=== PATIENT | male | born 1955 | race Caucasian/White ===

== ENCOUNTER 2024-06-30 20:01 | Observation (INO) ==
--- NOTE | 2024-06-30 20:16 | Emergency Department Note ---
Impression & Plan TIA (transient ischemic attack), Stroke-like symptom ED Provider Note NAME: ROCKY YUNG AGE: 68 SEX: M : 1955 ARRIVES VIA: Ambulance INFORMANT: Patient, ED PROVIDER(S): Davdi Antony DO CHIEF COMPLAINT: Strokelike symptoms HPI: The patient is a 68-year-old male who presented to the emergency department for an evaluation of strokelike symptoms. The patient arrived via ambulance. He is somewhat confused as to what happened. He states he was sitting at dinner with his significant other when he had an episode where he could not speak. He is unsure if he passed out. The patient does complain of a slight headache. He denies having any weakness in the arms or legs. He denies having any recent trauma. The patient states that he does notice that he has some problems moving the left side of his face. ROS: See above HPI for pertinent positives & negatives. A total of 10 systems reviewed and were otherwise negative. PAST MEDICAL HISTORY: See Below PAST SURGICAL HISTORY: See Below FAMILY HISTORY: See Below SOCIAL HISTORY: See Below HOME MEDICATIONS: See Below ALLERGIES: See Below VITALS: See Below PHYSICAL EXAMINATION: GENERAL: Patient is awake alert in no acute distress patient is resting comfortably and showing no signs of anxiety EYES: The conjunctivae are clear. The pupils are round and reactive. EARS, NOSE, MOUTH AND THROAT: The nose is without any evidence of any deformity. NECK: The neck is nontender and supple. RESPIRATORY: Normal respiratory effort is noted there is no evidence of wheezing rhonchi or rales CARDIOVASCULAR: Regular rate and rhythm noted there no murmurs rubs or gallops normal S1 normal S2. GASTROINTESTINAL: The abdomen is soft. Abdomen is nontender. MUSCULOSKELETAL/EXTREMITIES: There is no evidence of gross deformity full range of motion is noted in the hips and shoulders. SKIN: There is no obvious evidence of any rash. There are no petechiae, pallor or cyanosis noted. NEUROLOGIC: Patient is awake alert and oriented x3. There was a slight left- sided facial droop with sparing of the forehead. There is no drift in the upper extremities. Rod Puller strength was symmetric. The patient is able to hold each leg off the bed for greater than 5 seconds. MEDICAL DECISION MAKING: The patient is a 68-year-old male who presented to the emergency department for an evaluation of strokelike symptoms. The patient had an acute onset prior to arrival while eating dinner with his significant other. The patient's symptoms included difficulty with word finding as well as slurred speech. The patient was found to have a left-sided facial droop upon arrival to the emergency department. The patient was made a stroke alert in the emergency department. The patient's symptoms continue to improve while he was in the emergency department. I discussed his condition with the telestroke neurologist. The patient's radiographic studies did not reveal any intracranial hemorrhage or large vessel occlusion. The patient was reevaluated multiple times. I discussed the patient's condition with the on-call [facility] hospitalist. They have agreed to evaluate the patient in the emergency department for further management and disposition. The patient may require further workup to evaluate the cause of the symptoms. He was not felt to be a candidate for TNK as his symptoms are rapidly improving. The patient's blood pressure initially was very elevated. This did not require any intervention and seemed to improve just while he was in our department. Triage Nursing notes reviewed. Prior medical records reviewed Vital Signs: reviewed and remarkable for elevated blood pressure. Differential diagnosis: Infection, dehydration, metabolic abnormality, hypo/hyperglycemia, electrolyte disturbance, anemia, hypoxia, cardiac sources, intracerebral event, toxicologic, neurologic, as well as other pathologies. ER treatment provided: See below Diagnostics interpreted by me: ECG: EKG was obtained in the emergency department. My interpretation is normal sinus rhythm at 77 bpm. There is no ectopy. There was no acute ST segment abnormalities noted. LVH was suggested by voltage criteria. Cardiac Monitoring: An order was placed for continuous cardiac monitoring. The monitor shows a rate of 66 bpm with sinus rhythm. Laboratory studies: As stated above and show below. Imaging studies: See below. Radiographic imaging was reviewed by myself Consultation(s): I discussed this case with the telestroke neurologist, Dr. Pablo who is on-call for [facility] I discussed this case with Dr. Lindsay [facility]. Past Med/Surg History Problem List (Updated 06/30/24 @ 21:53 by David Antony DO) Stroke-like symptom (Acute) TIA (transient ischemic attack) (Acute) Hypokalemia Dyslipidemia (Chronic) Anxiety (Chronic) TIA (transient ischemic attack) (Acute) Type 2 diabetes mellitus (Chronic) Hypertension (Chronic) Family History Other FH: breast cancer FH: kidney cancer Hypertension Social History Smoking Status: Never smoker Hx Alcohol Use: No Hx Substance Use: No Preferred Language: French Communication Ability: Effective Loom Operator Required: No Beliefs That Will Affect Care: None marital status: Single Current Living Situation: Spouse Feels Safe at Home: Yes Assistive Devices: None Allergies Allergies Allergy/AdvReac Type Severity Reaction Status Date / Time ragweed pollen Allergy Watery Eye Unverified 09/17/18 15:38 Home Meds Home Medications Medication Instructions Recorded Confirmed alprazolam 1 mg tablet (Xanax) 1 mg PO TID PRN Anxiety 09/17/18 06/30/24 atorvastatin 40 mg tablet 40 mg PO QAM 09/17/18 06/30/24 escitalopram oxalate 10 mg tablet 10 mg PO QAM 09/17/18 06/30/24 metformin 1,000 mg tablet 1,000 mg PO BID 09/17/18 06/30/24 valsartan 160 1 tab PO BID 09/17/18 06/30/24 mg-hydrochlorothiazide 12.5 mg tablet magnesium oxide 400 mg PO DAILY 06/30/24 06/30/24 Previous Rx's Medication Instructions Recorded clopidogrel 75 mg tablet (Plavix) 75 mg PO DAILY #30 tabs 09/18/18 Results & Data (ED) Vital Signs Vital Signs - 24 hr 06/30/24 20:05 06/30/24 20:05 06/30/24 20:06 Temperature 36.7 C 36.7 C Temperature Source Oral Oral Pulse Rate 74 Pulse Rate [Apical] 79 Pulse Rate from SpO2 Sensor Respiratory Rate 16 16 Respiratory Effort / Characteristics Non-Labored Non-Labored Respiratory Depth Normal Normal Blood Pressure 195/112 H Blood Pressure [Left Arm] 195/112 H Blood Pressure Mean 139 Blood Pressure Mean [Left Arm] 139 Pulse Oximetry 97 96 96 Oxygen Delivery Method Room Air Room Air Room Air Sepsis Recent Fever Within 48 Hours No Sepsis New/Unexplained Change in Mental Status No Sepsis Action Taken by Nursing No Action Required 06/30/24 20:14 06/30/24 20:24 06/30/24 20:26 Temperature Temperature Source Pulse Rate 76 82 Pulse Rate [Apical] Pulse Rate from SpO2 Sensor 82 Respiratory Rate 23 Respiratory Effort / Characteristics Respiratory Depth Blood Pressure 195/102 H Blood Pressure [Left Arm] Blood Pressure Mean 134 Blood Pressure Mean [Left Arm] Pulse Oximetry 93 Oxygen Delivery Method Sepsis Recent Fever Within 48 Hours Sepsis New/Unexplained Change in Mental Status Sepsis Action Taken by Nursing 06/30/24 20:30 06/30/24 20:33 06/30/24 20:41 Temperature Temperature Source Pulse Rate Pulse Rate [Apical] 75 Pulse Rate from SpO2 Sensor Respiratory Rate 18 Respiratory Effort / Characteristics Non-Labored Spontaneous Respiratory Depth Normal Blood Pressure 172/104 H 169/99 H Blood Pressure [Left Arm] 169/99 H Blood Pressure Mean 122 115 Blood Pressure Mean [Left Arm] 122 Pulse Oximetry 95 Oxygen Delivery Method Room Air Sepsis Recent Fever Within 48 Hours Sepsis New/Unexplained Change in Mental Status Sepsis Action Taken by Nursing 06/30/24 20:42 06/30/24 20:45 06/30/24 20:45 Temperature Temperature Source Pulse Rate 73 Pulse Rate [Apical] Pulse Rate from SpO2 Sensor 73 Respiratory Rate 17 Respiratory Effort / Characteristics Respiratory Depth Blood Pressure 171/101 H 171/101 H Blood Pressure [Left Arm] Blood Pressure Mean 124 124 Blood Pressure Mean [Left Arm] Pulse Oximetry 96 Oxygen Delivery Method Sepsis Recent Fever Within 48 Hours Sepsis New/Unexplained Change in Mental Status Sepsis Action Taken by Nursing 06/30/24 20:54 06/30/24 21:00 06/30/24 21:00 Temperature Temperature Source Pulse Rate 78 Pulse Rate [Apical] Pulse Rate from SpO2 Sensor 77 Respiratory Rate 19 Respiratory Effort / Characteristics Respiratory Depth Blood Pressure 177/105 H 177/105 H Blood Pressure [Left Arm] Blood Pressure Mean 130 130 Blood Pressure Mean [Left Arm] Pulse Oximetry 95 Oxygen Delivery Method Sepsis Recent Fever Within 48 Hours Sepsis New/Unexplained Change in Mental Status Sepsis Action Taken by Nursing 06/30/24 21:15 06/30/24 21:18 06/30/24 21:30 Temperature Temperature Source Pulse Rate 67 66 Pulse Rate [Apical] Pulse Rate from SpO2 Sensor 67 67 Respiratory Rate 16 20 Respiratory Effort / Characteristics Respiratory Depth Blood Pressure 161/96 H Blood Pressure [Left Arm] Blood Pressure Mean 110 Blood Pressure Mean [Left Arm] Pulse Oximetry 94 96 Oxygen Delivery Method Sepsis Recent Fever Within 48 Hours Sepsis New/Unexplained Change in Mental Status Sepsis Action Taken by Nursing 06/30/24 21:30 Temperature Temperature Source Pulse Rate Pulse Rate [Apical] Pulse Rate from SpO2 Sensor Respiratory Rate Respiratory Effort / Characteristics Respiratory Depth Blood Pressure 162/87 H Blood Pressure [Left Arm] Blood Pressure Mean 97 Blood Pressure Mean [Left Arm] Pulse Oximetry Oxygen Delivery Method Sepsis Recent Fever Within 48 Hours Sepsis New/Unexplained Change in Mental Status Sepsis Action Taken by Alf Medications Current Medication List: was personally reviewed by me Laboratory Data Attestation: I reviewed the patient's lab results. 06/30/24 20:07 06/30/24 20:07 Lab Results 06/30/24 06/30/24 06/30/24 Range/Units 20:06 20:07 20:11 WBC 5.52 (4.8-10.8) K/ul RBC 5.05 (4.70-6.10) M/uL Hgb 14.5 (14.0-18.0) g/dl POC Hgb 14.6 (14.0-18.0) g/dl Hct 44.0 (42.0-52.0) % POC Hct 43 (42-52) % MCV 87.1 (80.0-100.0) fL MCH 28.7 (25.0-34.0) pg MCHC 33.0 (32.0-36.0) g/dL RDW Std Deviation 45.3 (36.4-46.3) fL RDW Coeff of Sylwia 14.3 (11.5-14.5) % Plt Count 130 (130-400) K/uL MPV 12.1 (9.4-12.4) fL Immature Gran % (Auto) 0.4 % Neut % (Auto) 67.9 % Lymph % (Auto) 17.9 % [place] % (Auto) 9.1 % Eos % (Auto) 4.0 % Baso % (Auto) 0.7 % Neut # (Auto) 3.75 (1.40-6.50) K/uL Lymph # (Auto) 0.99 L (1.20-3.40) K/uL [place] # (Auto) 0.50 (0.11-0.59) K/uL Eos # (Auto) 0.22 (0.00-0.50) K/uL Baso # (Auto) 0.04 (0.00-0.20) K/uL Immature Gran # (Auto) 0.02 (0.01-0.20) K/uL PT 11.4 (9.0-12.0) Seconds INR 1.1 (0.9-1.1) APTT 29 (21-31) Seconds PTT Ratio 1.1 POC Sodium 139 (135-144) mmol/L Sodium 138 (136-145) mmol/L POC Potassium 3.5 (3.3-5.0) mmol/L Potassium 3.5 (3.5-5.1) mmol/L POC Chloride 98 L (101-112) mmol/L Chloride 100 (98-107) mmol/L Carbon Dioxide 29 (21-32) mmol/L POC Total CO2 28 (24-31) mmol/L Anion Gap 9 (3-11) POC Anion Gap 17.0 (16-25) mmol/L POC BUN 13 (7-18) mg/dl BUN 14 (6-23) mg/dl Creatinine 0.97 (0.6-1.4) mg/dl POC Creatinine 1.1 (0.6-1.3) mg/dl Est Cr Clr Drug Dosing 97.9 ml/min Est GFR ( Amer) 91.9 ml/min Est GFR (Non-Af Amer) 79.3 ml/min BUN/Creatinine Ratio 14.4 (10-20) Glucose 128 H (70-99(Fasting)) mg/dl POC Glucose 124 H (70-99) mg/dl POC Glucose (other) 126 H (70-99) mg/dl Calcium 9.1 (8.6-10.3) mg/dl POC Ioniz Calcium Kassandra 1.14 (1.12-1.32) mmol/l Magnesium 1.8 (1.7-2.4) mg/dl Total Bilirubin 2.1 H (0.2-1.0) mg/dl AST 19 (13-39) U/L ALT 20 (7-52) U/L Alkaline Phosphatase 71 (34-104) U/L Troponin I High Sens 10.1 (0-20) pg/ml Total Protein 7.4 (6.0-8.3) gm/dl Albumin 4.5 (3.4-5.0) gm/dl Globulin 2.9 (2.5-4.0) gm/dl Albumin/Globulin Ratio 1.6 (0.9-2) Urine Color Urine Appearance (Clear) Urine pH (4.5-7.5) Ur Specific [place] (1.000-1.030) Urine Protein (Negative) Urine Glucose (UA) (Negative) Urine Ketones (Negative) Urine Blood (Negative) Urine Nitrite (Negative) Urine Bilirubin (Negative) Urine Urobilinogen (Negative) Ur Leukocyte Esterase (Negative) 06/30/24 06/30/24 Range/Units 20:31 21:05 WBC (4.8-10.8) K/ul RBC (4.70-6.10) M/uL Hgb (14.0-18.0) g/dl POC Hgb (14.0-18.0) g/dl Hct (42.0-52.0) % POC Hct (42-52) % MCV (80.0-100.0) fL MCH (25.0-34.0) pg MCHC (32.0-36.0) g/dL RDW Std Deviation (36.4-46.3) fL RDW Coeff of Sylwia (11.5-14.5) % Plt Count (130-400) K/uL MPV (9.4-12.4) fL Immature Gran % (Auto) % Neut % (Auto) % Lymph % (Auto) % [place] % (Auto) % Eos % (Auto) % Baso % (Auto) % Neut # (Auto) (1.40-6.50) K/uL Lymph # (Auto) (1.20-3.40) K/uL [place] # (Auto) (0.11-0.59) K/uL Eos # (Auto) (0.00-0.50) K/uL Baso # (Auto) (0.00-0.20) K/uL Immature Gran # (Auto) (0.01-0.20) K/uL PT (9.0-12.0) Seconds INR (0.9-1.1) APTT (21-31) Seconds PTT Ratio POC Sodium (135-144) mmol/L Sodium (136-145) mmol/L POC Potassium (3.3-5.0) mmol/L Potassium (3.5-5.1) mmol/L POC Chloride (101-112) mmol/L Chloride (98-107) mmol/L Carbon Dioxide (21-32) mmol/L POC Total CO2 (24-31) mmol/L Anion Gap (3-11) POC Anion Gap (16-25) mmol/L POC BUN (7-18) mg/dl BUN (6-23) mg/dl Creatinine (0.6-1.4) mg/dl POC Creatinine (0.6-1.3) mg/dl Est Cr Clr Drug Dosing ml/min Est GFR ( Amer) ml/min Est GFR (Non-Af Amer) ml/min BUN/Creatinine Ratio (10-20) Glucose (70-99(Fasting)) mg/dl POC Glucose 126 H (70-99) mg/dl POC Glucose (other) (70-99) mg/dl Calcium (8.6-10.3) mg/dl POC Ioniz Calcium Kassandra (1.12-1.32) mmol/l Magnesium (1.7-2.4) mg/dl Total Bilirubin (0.2-1.0) mg/dl AST (13-39) U/L ALT (7-52) U/L Alkaline Phosphatase (34-104) U/L Troponin I High Sens (0-20) pg/ml Total Protein (6.0-8.3) gm/dl Albumin (3.4-5.0) gm/dl Globulin (2.5-4.0) gm/dl Albumin/Globulin Ratio (0.9-2) Urine Color Yellow Urine Appearance Clear (Clear) Urine pH 7.0 (4.5-7.5) Ur Specific [place] 1.018 (1.000-1.030) Urine Protein Negative (Negative) Urine Glucose (UA) Negative (Negative) Urine Ketones Negative (Negative) Urine Blood Negative (Negative) Urine Nitrite Negative (Negative) Urine Bilirubin Negative (Negative) Urine Urobilinogen Negative (Negative) Ur Leukocyte Esterase Negative (Negative) Administered Medications Discontinued Medications Aspirin (Aspirin Chew 324 Mg) 324 mg PO NOW STA Stop: 06/30/24 21:21 Last Admin: 06/30/24 21:29 Dose: Not Given Documented By: KELSIE Ioversol (Optiray 320 125ml) 116 ml IV ONCE ONE Stop: 06/30/24 20:18 Last Admin: 06/30/24 20:17 Dose: 116 ml Documented By: EDD Imaging Data Attestation: I personally reviewed and interpreted this imaging study as follows: My Impression: CT of the brain was obtained in the emergency department. My interpretation is no intracranial hemorrhage or mass effect, final report below. 1 view chest x-ray was obtained in the emergency department. My interpretation is no free air or signs of infiltrate, final report pending. Radiologist's Impression: Head CT 06/30/24 20:11 CR Exam(s): CT HEAD Without Contrast EXAM: CT Head Without Intravenous Contrast CLINICAL HISTORY: Reason for exam: neuro deficit, acute stroke suspected. TECHNIQUE: Axial computed tomography images of the head/brain without intravenous contrast. CTDI is 62.75 mGy and DLP is 1098.96 mGy-cm. Automated exposure control was utilized for the study. A dose lowering technique was utilized adhering to the principles of ALARA. COMPARISON: None. FINDINGS: Brain: No mass effect or acute infarct. No acute hemorrhage. Mild atrophy and chronic white matter disease. Ventricles: No hydrocephalus or midline shift. Bones/joints: No acute finding. Soft tissues: No scalp hematoma. Visualized Sinuses: Clear. Mastoid air cells: Severe left mastoid effusion. IMPRESSION: 1. Mild age-related findings. 2. No acute infarct, bleed, or acute intracranial abnormality. Communications: Call Doctor Stroke Electronically signed by: Kay London M.D. 06/30/24 20:44 PM Head CTA 06/30/24 20:11 CR Exam(s): CTA HEAD With Contrast IV Amt: 116 ml optiray 320 EXAM: CT Angiography Head With Intravenous Contrast CLINICAL HISTORY: Reason for exam: neuro deficit, acute stroke suspected. TECHNIQUE: Axial computed tomographic angiography images of the head with intravenous contrast. CTDI is 16.61 mGy and DLP is 8.3 mGy-cm. Automated exposure control was utilized for the study. A dose lowering technique was utilized adhering to the principles of ALARA. MIP reconstructed images were created and reviewed. Mild motion artifact. Venous contamination. CONTRAST: Patient received 116 ml optiray 320 of IV contrast COMPARISON: Head CT done earlier. FINDINGS: Right internal carotid artery: Patent. Right anterior cerebral artery: Patent. Right middle cerebral artery: Patent. Right posterior cerebral artery: Patent. Right vertebral artery: Patent. Left internal carotid artery: Patent. Left anterior cerebral artery: Patent. Left middle cerebral artery: Patent. Left posterior cerebral artery: Patent. Left vertebral artery: Patent. Dominant and ectatic. Basilar artery: Patent. Ectatic. Other: Patent dural venous sinuses. IMPRESSION: 1. No aneurysm or large vessel occlusion. Communications: Call Doctor Stroke Electronically signed by: Kay London M.D. 06/30/24 20:44 PM Neck CTA 06/30/24 20:11 CR Exam(s): CTA NECK With Contrast IV Amt: 116 ml optiray 320 EXAM: CT Angiography Neck With Intravenous Contrast CLINICAL HISTORY: Reason for exam: neuro deficit, acute stroke suspected. TECHNIQUE: Routine carotid CT angiography protocol was performed with intravenous contrast. NASCET criteria using the distal ICAs for comparison were used for evaluation of stenoses. CTDI is 13.7 mGy and DLP is 548.74 mGy-cm. Automated exposure control was utilized for the study. A dose lowering technique was utilized adhering to the principles of ALARA. MIP reconstructed images were created and reviewed. CONTRAST: Patient received 116 ml optiray 320 of IV contrast COMPARISON: None. FINDINGS: Right common carotid artery: Patent. Right internal carotid artery: Patent. Right vertebral artery: Patent. Left common carotid artery: Patent. Left internal carotid artery: Patent. Left vertebral artery: Patent. Left dominant system. Other: No significant carotid atherosclerosis or stenosis. IMPRESSION: 1. No dissection, occlusion, or significant stenosis. CAROTID STENOSIS REFERENCE USING NASCET CRITERIA: % ICA stenosis = (1 - narrowest ICA diameter/diameter of distal cervical ICA) x 100. Mild - <50% stenosis. Moderate - 50-69% stenosis. Severe - 70-94% stenosis. Near occlusion - 95-99% stenosis. Occluded - 100% stenosis. Communications: Call Doctor Stroke Electronically signed by: Kay London M.D. 06/30/24 20:45 PM Discharge Plan Visit Data Chief Complaint: Confusion Stated Complaint: STROKE SYMTOMS ED Provider: David Antony Discharge Problem: TIA (transient ischemic attack), Stroke-like symptom Patient Disposition: Being Evaluated by Hospitalist Forms Stand Alone Forms: [facility] Prescriptions Prescriptions: No Action atorvastatin 40 mg tablet 40 mg PO QAM alprazolam [Xanax] 1 mg Tablet 1 mg PO TID PRN (Reason: Anxiety) valsartan-hydrochlorothiazide 160-12.5 mg tablet 1 tab PO BID escitalopram oxalate 10 mg tablet 10 mg PO QAM metformin 1,000 mg Tablet 1,000 mg PO BID clopidogrel [Plavix] 75 mg tablet 75 mg PO DAILY Qty: 30 0RF magnesium oxide 400 mg PO DAILY Referrals Referrals: Rocky Melissa MD [Primary Care Provider] -
[2024-06-30] MEDS: OPTIRAY 320 125ml IV ONE (20:17)
[2024-06-30 20:24] LABS: iSTAT Creatinine 1.1 mg/dl (0.6-1.3); iSTAT Hemoglobin 14.6 g/dl (14.0-18.0); iSTAT Ionized Calcium 1.14 mmol/l (1.12-1.32); iSTAT Potassium 3.5 mmol/L (3.3-5.0)
[2024-06-30 20:35] LABS: Basophils # (auto) 0.04 K/uL (0.00-0.20); Basophils % (auto) 0.7 %; Eosinophils # (auto) 0.22 K/uL (0.00-0.50); Hemoglobin 14.5 g/dl (14.0-18.0); Immature Granulocytes # (auto) 0.02 K/uL (0.01-0.20); Immature Granulocytes % (auto) 0.4 %; Lymphocytes # (auto) 0.99 K/uL (1.20-3.40); Lymphocytes % (auto) 17.9 %; Mean Corpuscular Hemoglobin 28.7 pg (25.0-34.0); Mean Corpuscular Volume 87.1 fL (80.0-100.0); Mean Platelet Volume 12.1 fL (9.4-12.4); Monocytes % (auto) 9.1 %; Neutrophils # (auto) 3.75 K/uL (1.40-6.50); Neutrophils % (auto) 67.9 %; Platelet Count 130 K/uL (130-400); RDW Coefficient of Variation 14.3 % (11.5-14.5); RDW Standard Deviation 45.3 fL (36.4-46.3); Red Blood Count 5.05 M/uL (4.70-6.10); White Blood Count 5.52 K/ul (4.8-10.8)
--- NOTE | 2024-06-30 20:45 | CT Scan Report ---
Exam(s): CTA HEAD With Contrast IV Amt: 116 ml optiray 320 EXAM: CT Angiography Head With Intravenous Contrast CLINICAL HISTORY: Reason for exam: neuro deficit, acute stroke suspected. TECHNIQUE: Axial computed tomographic angiography images of the head with intravenous contrast. CTDI is 16.61 mGy and DLP is 8.3 mGy-cm. Automated exposure control was utilized for the study. A dose lowering technique was utilized adhering to the principles of ALARA. MIP reconstructed images were created and reviewed. Mild motion artifact. Venous contamination. CONTRAST: Patient received 116 ml optiray 320 of IV contrast COMPARISON: Head CT done earlier. FINDINGS: Right internal carotid artery: Patent. Right anterior cerebral artery: Patent. Right middle cerebral artery: Patent. Right posterior cerebral artery: Patent. Right vertebral artery: Patent. Left internal carotid artery: Patent. Left anterior cerebral artery: Patent. Left middle cerebral artery: Patent. Left posterior cerebral artery: Patent. Left vertebral artery: Patent. Dominant and ectatic. Basilar artery: Patent. Ectatic. Other: Patent dural venous sinuses. IMPRESSION: 1. No aneurysm or large vessel occlusion. Communications: Call Doctor Stroke Electronically signed by: Kay London M.D. 06/30/24 20:44 PM
--- NOTE | 2024-06-30 20:46 | CT Scan Report ---
Exam(s): CTA NECK With Contrast IV Amt: 116 ml optiray 320 EXAM: CT Angiography Neck With Intravenous Contrast CLINICAL HISTORY: Reason for exam: neuro deficit, acute stroke suspected. TECHNIQUE: Routine carotid CT angiography protocol was performed with intravenous contrast. NASCET criteria using the distal ICAs for comparison were used for evaluation of stenoses. CTDI is 13.7 mGy and DLP is 548.74 mGy-cm. Automated exposure control was utilized for the study. A dose lowering technique was utilized adhering to the principles of ALARA. MIP reconstructed images were created and reviewed. CONTRAST: Patient received 116 ml optiray 320 of IV contrast COMPARISON: None. FINDINGS: Right common carotid artery: Patent. Right internal carotid artery: Patent. Right vertebral artery: Patent. Left common carotid artery: Patent. Left internal carotid artery: Patent. Left vertebral artery: Patent. Left dominant system. Other: No significant carotid atherosclerosis or stenosis. IMPRESSION: 1. No dissection, occlusion, or significant stenosis. CAROTID STENOSIS REFERENCE USING NASCET CRITERIA: % ICA stenosis = (1 - narrowest ICA diameter/diameter of distal cervical ICA) x 100. Mild - <50% stenosis. Moderate - 50-69% stenosis. Severe - 70-94% stenosis. Near occlusion - 95-99% stenosis. Occluded - 100% stenosis. Communications: Call Doctor Stroke Electronically signed by: Kay London M.D. 06/30/24 20:45 PM
--- NOTE | 2024-06-30 20:46 | CT Scan Report ---
Exam(s): CT HEAD Without Contrast EXAM: CT Head Without Intravenous Contrast CLINICAL HISTORY: Reason for exam: neuro deficit, acute stroke suspected. TECHNIQUE: Axial computed tomography images of the head/brain without intravenous contrast. CTDI is 62.75 mGy and DLP is 1098.96 mGy-cm. Automated exposure control was utilized for the study. A dose lowering technique was utilized adhering to the principles of ALARA. COMPARISON: None. FINDINGS: Brain: No mass effect or acute infarct. No acute hemorrhage. Mild atrophy and chronic white matter disease. Ventricles: No hydrocephalus or midline shift. Bones/joints: No acute finding. Soft tissues: No scalp hematoma. Visualized Sinuses: Clear. Mastoid air cells: Severe left mastoid effusion. IMPRESSION: 1. Mild age-related findings. 2. No acute infarct, bleed, or acute intracranial abnormality. Communications: Call Doctor Stroke Electronically signed by: Kay London M.D. 06/30/24 20:44 PM
[2024-06-30 20:50] LABS: Albumin Globulin Ratio 1.6 (0.9-2); Albumin Level 4.5 gm/dl (3.4-5.0); BUN Creatinine Ratio 14.4 (10-20); Bilirubin,Total 2.1 mg/dl (0.2-1.0); Calcium 9.1 mg/dl (8.6-10.3); Creatinine Clr Calc Pharmacy 97.9 ml/min; Est GFR (African American) 91.9 ml/min; Est GFR (Non-African American) 79.3 ml/min; Globulin 2.9 gm/dl (2.5-4.0); Magnesium 1.8 mg/dl (1.7-2.4); Potassium 3.5 mmol/L (3.5-5.1); Total Protein 7.4 gm/dl (6.0-8.3)
[2024-06-30 20:55] LABS: Troponin I High Sensitivity 10.1 pg/ml (0-20)
[2024-06-30 21:12] LABS: INR 1.1 (0.9-1.1); Partial Thromboplastin Ratio 1.1; Partial Thromboplastin Time 29 Seconds (21-31); Prothrombin Time 11.4 Seconds (9.0-12.0)
[2024-06-30 21:20] LABS: Appearance Urine Clear (Clear); Bilirubin Urine Negative (Negative); Blood Urine Negative (Negative); Color Urine Yellow; Glucose Urine UA Negative (Negative); Ketones Urine Negative (Negative); Leukocyte Esterase Urine Negative (Negative); Nitrite Urine Negative (Negative); Protein Urine Negative (Negative); Specific Gravity Urine 1.018 (1.000-1.030); Urobilinogen Urine Negative (Negative)
[2024-06-30] MEDS: ASPIRIN CHEW 324 MG PO STA (21:29)
[2024-06-30] MEDS: NSS + 20MEQ KCL 20 MEQ/1,000 ML BAG IV ONE (22:01)
[2024-06-30] MEDS: MAGNESIUM SULFATE / D5W 1 GM/100 ML BAG IV ONE (22:01)
--- NOTE | 2024-06-30 22:16 | History & Physical Report ---
Date of Service June 30, 2024 Assessment & Plan (1) TIA (transient ischemic attack): Plan: Recurrent TIA presenting as expressive aphasia symptoms again Hypertension, elevated secondary to above hyperlipidemia, on statin Rx hx PFO TAYLOR on CPAP DM2 on oral medications, uncontrolled as of recent hemoglobin A1c of 7.10 May 2024 chronic thrombocytopenia OBS Medical telemetry Neurochecks Aspirin in addition to Plavix Rx for total of 21 days as per [facility] stroke specialist (Dr. Driver) recommendations as per ED provider. Additional recommendations from neurologist include : permissive hypertension brain MRI TTE with bubble lipid panel, hemoglobin A1c, serum homocystine level Checking P2 Y12 platelet function test if available and if needed transition Plavix to Brilinta. (Lab to check on availability of test at [facility].) Increasing Lipitor to 80 mg daily. Basal insulin, ISS BG goal 1 10-1 40, carb count coverage DVT prophylaxis. SCDs Re: Thrombocytopenia Full code Text document was generated using [employer] voice recognition software. It may contain grammatical or spelling errors. Kindly contact undersigned for clarification of any documentation item in question. History of Present Illness Chief Complaint: Transient aphasia Primary Care Provider: Reed Leon MD History obtained from patient and records. Medical history significant for hypertension, hyperlipidemia, TIA, PFO, TAYLOR on CPAP, DM2 on oral medications, chronic thrombocytopenia, anxiety disorder. Last confinement September 2018 for TIA symptoms presenting as transient expressive aphasia associated with headache symptoms. No CVA on MRI. Patient discharged on dual antiplatelet Rx. Neurologist later discontinued aspirin and instructed patient to continue Plavix for lifetime. Patient was about to have dinner with mike when he had trouble getting words out again associated with headache symptoms. No chest pain, no SOB. No arm or leg weakness. Compliant with home medications. Stroke alert called upon arrival at the ER. Thrombolytic therapy not recommended given improvement of symptoms. Neurologic symptoms currently resolved. 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 Allergies Allergy/AdvReac Type Severity Reaction Status Date / Time ragweed pollen Allergy Watery Eye Unverified 09/17/18 15:38 Home Medications Medication Instructions Recorded Confirmed Type alprazolam 1 mg tablet (Xanax) 1 mg PO TID PRN Anxiety 09/17/18 06/30/24 History atorvastatin 40 mg tablet 40 mg PO QAM 09/17/18 06/30/24 History escitalopram oxalate 10 mg tablet 10 mg PO QAM 09/17/18 06/30/24 History metformin 1,000 mg tablet 1,000 mg PO BID 09/17/18 06/30/24 History valsartan 160 1 tab PO BID 09/17/18 06/30/24 History mg-hydrochlorothiazide 12.5 mg tablet clopidogrel 75 mg tablet (Plavix) 75 mg PO DAILY #30 tabs 09/18/18 06/30/24 Rx magnesium oxide 400 mg PO DAILY 06/30/24 06/30/24 History Past Med/Surg History Problem List (Updated 06/30/24 @ 21:53 by David Antony DO) Stroke-like symptom (Acute) TIA (transient ischemic attack) (Acute) Hypokalemia Dyslipidemia (Chronic) Anxiety (Chronic) TIA (transient ischemic attack) (Acute) Type 2 diabetes mellitus (Chronic) Hypertension (Chronic) Family History Other FH: breast cancer FH: kidney cancer Hypertension Social History Smoking Status: Never smoker Hx Alcohol Use: No Hx Substance Use: No Preferred Language: Lao Communication Ability: Effective 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 Beliefs That Will Affect Care: None marital status: Single Current Living Situation: Spouse Current Living Situation Comment: lives at home with Other Information That Helps Us Care for You: No Feels Safe at Home: Yes Safety Concerns: Feels Safe At This Time Assistive Devices: CPAP and Glasses Review of Systems Review of Systems: As per HPI, all other systems reviewed and negative Physical Exam Physical Exam: GENERAL: Comfortable, pleasant, obese, no respiratory distress SKIN: Normal color, warm HEENT: [place] palpebral conjunctivae, no ptosis, moist buccal mucosa NECK : Supple, no tenderness CHEST : CTA, no tenderness HEART : RRR, no obvious murmurs ABDOMEN: Some distention, nontender EXTREMITIES : No LE swelling/tenderness, no other conspicuous deformities noted NEUROLOGIC : Coherent, no facial asymmetry, no other gross focality Results & Data Results & Data Vital Signs (Past 12 Hours) Vital Signs Temp Pulse Pulse Resp BP BP Pulse Ox 06/30/24 22:05 70 19 159/87 H 94 06/30/24 21:30 162/87 H 06/30/24 21:30 66 20 96 06/30/24 21:18 67 16 94 06/30/24 21:15 161/96 H 06/30/24 21:00 177/105 H 06/30/24 21:00 177/105 H 06/30/24 20:54 78 19 95 06/30/24 20:45 171/101 H 06/30/24 20:45 171/101 H 06/30/24 20:42 73 17 96 06/30/24 20:41 75 18 169/99 H 95 06/30/24 20:33 169/99 H 06/30/24 20:30 172/104 H 06/30/24 20:26 82 23 93 06/30/24 20:24 195/102 H 06/30/24 20:14 76 06/30/24 20:06 36.7 C 74 16 195/112 H 96 06/30/24 20:05 36.7 C 79 16 195/112 H 96 06/30/24 20:05 97 O2 Del Method 06/30/24 22:05 Room Air 06/30/24 21:30 06/30/24 21:30 06/30/24 21:18 06/30/24 21:15 06/30/24 21:00 06/30/24 21:00 06/30/24 20:54 06/30/24 20:45 06/30/24 20:45 06/30/24 20:42 06/30/24 20:41 Room Air 06/30/24 20:33 06/30/24 20:30 06/30/24 20:26 06/30/24 20:24 06/30/24 20:14 06/30/24 20:06 Room Air 06/30/24 20:05 Room Air 06/30/24 20:05 Room Air Laboratory Results Laboratory Results WBC 5.52 K/ul (4.8-10.8) 06/30/24 20:07 RBC 5.05 M/uL (4.70-6.10) 06/30/24 20:07 Hgb 14.5 g/dl (14.0-18.0) 06/30/24 20:07 POC Hgb 14.6 g/dl (14.0-18.0) 06/30/24 20:11 Hct 44.0 % (42.0-52.0) 06/30/24 20:07 POC Hct 43 % (42-52) 06/30/24 20:11 MCV 87.1 fL (80.0-100.0) 06/30/24 20:07 MCH 28.7 pg (25.0-34.0) 06/30/24 20:07 MCHC 33.0 g/dL (32.0-36.0) 06/30/24 20:07 RDW Std Deviation 45.3 fL (36.4-46.3) 06/30/24 20:07 RDW Coeff of Sylwia 14.3 % (11.5-14.5) 06/30/24 20:07 Plt Count 130 K/uL (130-400) 06/30/24 20:07 MPV 12.1 fL (9.4-12.4) 06/30/24 20:07 Immature Gran % (Auto) 0.4 % 06/30/24 20:07 Neut % (Auto) 67.9 % 06/30/24 20:07 Lymph % (Auto) 17.9 % 06/30/24 20:07 [place] % (Auto) 9.1 % 06/30/24 20:07 Eos % (Auto) 4.0 % 06/30/24 20:07 Baso % (Auto) 0.7 % 06/30/24 20:07 Neut # (Auto) 3.75 K/uL (1.40-6.50) 06/30/24 20:07 Lymph # (Auto) 0.99 K/uL (1.20-3.40) L 06/30/24 20:07 [place] # (Auto) 0.50 K/uL (0.11-0.59) 06/30/24 20:07 Eos # (Auto) 0.22 K/uL (0.00-0.50) 06/30/24 20:07 Baso # (Auto) 0.04 K/uL (0.00-0.20) 06/30/24 20:07 Immature Gran # (Auto) 0.02 K/uL (0.01-0.20) 06/30/24 20:07 PT 11.4 Seconds (9.0-12.0) 06/30/24 20:07 INR 1.1 (0.9-1.1) 06/30/24 20:07 APTT 29 Seconds (21-31) 06/30/24 20:07 PTT Ratio 1.1 06/30/24 20:07 POC Sodium 139 mmol/L (135-144) 06/30/24 20:11 Sodium 138 mmol/L (136-145) 06/30/24 20:07 POC Potassium 3.5 mmol/L (3.3-5.0) 06/30/24 20:11 Potassium 3.5 mmol/L (3.5-5.1) 06/30/24 20:07 POC Chloride 98 mmol/L (101-112) L 06/30/24 20:11 Chloride 100 mmol/L (98-107) 06/30/24 20:07 Carbon Dioxide 29 mmol/L (21-32) 06/30/24 20:07 POC Total CO2 28 mmol/L (24-31) 06/30/24 20:11 Anion Gap 9 (3-11) 06/30/24 20:07 POC Anion Gap 17.0 mmol/L (16-25) 06/30/24 20:11 POC BUN 13 mg/dl (7-18) 06/30/24 20:11 BUN 14 mg/dl (6-23) 06/30/24 20:07 Creatinine 0.97 mg/dl (0.6-1.4) 06/30/24 20:07 POC Creatinine 1.1 mg/dl (0.6-1.3) 06/30/24 20:11 Est Cr Clr Drug Dosing 97.9 ml/min 06/30/24 20:07 Est GFR ( Amer) 91.9 ml/min 06/30/24 20:07 Est GFR (Non-Af Amer) 79.3 ml/min 06/30/24 20:07 BUN/Creatinine Ratio 14.4 (10-20) 06/30/24 20:07 Glucose 128 mg/dl (70-99(Fasting)) H 06/30/24 20:07 POC Glucose 126 mg/dl (70-99) H 06/30/24 20:31 POC Glucose (other) 126 mg/dl (70-99) H 06/30/24 20:11 Calcium 9.1 mg/dl (8.6-10.3) 06/30/24 20:07 POC Ioniz Calcium [place] 1.14 mmol/l (1.12-1.32) 06/30/24 20:11 Magnesium 1.8 mg/dl (1.7-2.4) 06/30/24 20:07 Total Bilirubin 2.1 mg/dl (0.2-1.0) H 06/30/24 20:07 AST 19 U/L (13-39) 06/30/24 20:07 ALT 20 U/L (7-52) 06/30/24 20:07 Alkaline Phosphatase 71 U/L (34-104) 06/30/24 20:07 Troponin I High Sens 10.1 pg/ml (0-20) 06/30/24 20:07 Total Protein 7.4 gm/dl (6.0-8.3) 06/30/24 20:07 Albumin 4.5 gm/dl (3.4-5.0) 06/30/24 20:07 Globulin 2.9 gm/dl (2.5-4.0) 06/30/24 20:07 Albumin/Globulin Ratio 1.6 (0.9-2) 06/30/24 20:07 Urine Color Yellow 06/30/24 21:05 Urine Appearance Clear (Clear) 06/30/24 21:05 Urine pH 7.0 (4.5-7.5) 06/30/24 21:05 Ur Specific [place] 1.018 (1.000-1.030) 06/30/24 21:05 Urine Protein Negative (Negative) 06/30/24 21:05 Urine Glucose (UA) Negative (Negative) 06/30/24 21:05 Urine Ketones Negative (Negative) 06/30/24 21:05 Urine Blood Negative (Negative) 06/30/24 21:05 Urine Nitrite Negative (Negative) 06/30/24 21:05 Urine Bilirubin Negative (Negative) 06/30/24 21:05 Urine Urobilinogen Negative (Negative) 06/30/24 21:05 Ur Leukocyte Esterase Negative (Negative) 06/30/24 21:[address] 06/30/24 20:11 CR Exam(s): CT HEAD Without Contrast EXAM: CT Head Without Intravenous Contrast CLINICAL HISTORY: Reason for exam: neuro deficit, acute stroke suspected. TECHNIQUE: Axial computed tomography images of the head/brain without intravenous contrast. CTDI is 62.75 mGy and DLP is 1098.96 mGy-cm. Automated exposure control was utilized for the study. A dose lowering technique was utilized adhering to the principles of ALARA. COMPARISON: None. FINDINGS: Brain: No mass effect or acute infarct. No acute hemorrhage. Mild atrophy and chronic white matter disease. Ventricles: No hydrocephalus or midline shift. Bones/joints: No acute finding. Soft tissues: No scalp hematoma. Visualized Sinuses: Clear. Mastoid air cells: Severe left mastoid effusion. IMPRESSION: 1. Mild age-related findings. 2. No acute infarct, bleed, or acute intracranial abnormality. Communications: Call Doctor Stroke Electronically signed by: Kay London M.D. 06/30/24 20:44 PM Head CTA 06/30/24 20:11 CR Exam(s): CTA HEAD With Contrast IV Amt: 116 ml optiray 320 EXAM: CT Angiography Head With Intravenous Contrast CLINICAL HISTORY: Reason for exam: neuro deficit, acute stroke suspected. TECHNIQUE: Axial computed tomographic angiography images of the head with intravenous contrast. CTDI is 16.61 mGy and DLP is 8.3 mGy-cm. Automated exposure control was utilized for the study. A dose lowering technique was utilized adhering to the principles of ALARA. MIP reconstructed images were created and reviewed. Mild motion artifact. Venous contamination. CONTRAST: Patient received 116 ml optiray 320 of IV contrast COMPARISON: Head CT done earlier. FINDINGS: Right internal carotid artery: Patent. Right anterior cerebral artery: Patent. Right middle cerebral artery: Patent. Right posterior cerebral artery: Patent. Right vertebral artery: Patent. Left internal carotid artery: Patent. Left anterior cerebral artery: Patent. Left middle cerebral artery: Patent. Left posterior cerebral artery: Patent. Left vertebral artery: Patent. Dominant and ectatic. Basilar artery: Patent. Ectatic. Other: Patent dural venous sinuses. IMPRESSION: 1. No aneurysm or large vessel occlusion. Communications: Call Doctor Stroke Electronically signed by: Kay London M.D. 06/30/24 20:44 PM Neck CTA 06/30/24 20:11 CR Exam(s): CTA NECK With Contrast IV Amt: 116 ml optiray 320 EXAM: CT Angiography Neck With Intravenous Contrast CLINICAL HISTORY: Reason for exam: neuro deficit, acute stroke suspected. TECHNIQUE: Routine carotid CT angiography protocol was performed with intravenous contrast. NASCET criteria using the distal ICAs for comparison were used for evaluation of stenoses. CTDI is 13.7 mGy and DLP is 548.74 mGy-cm. Automated exposure control was utilized for the study. A dose lowering technique was utilized adhering to the principles of ALARA. MIP reconstructed images were created and reviewed. CONTRAST: Patient received 116 ml optiray 320 of IV contrast COMPARISON: None. FINDINGS: Right common carotid artery: Patent. Right internal carotid artery: Patent. Right vertebral artery: Patent. Left common carotid artery: Patent. Left internal carotid artery: Patent. Left vertebral artery: Patent. Left dominant system. Other: No significant carotid atherosclerosis or stenosis. IMPRESSION: 1. No dissection, occlusion, or significant stenosis. CAROTID STENOSIS REFERENCE USING NASCET CRITERIA: % ICA stenosis = (1 - narrowest ICA diameter/diameter of distal cervical ICA) x 100. Mild - <50% stenosis. Moderate - 50-69% stenosis. Severe - 70-94% stenosis. Near occlusion - 95-99% stenosis. Occluded - 100% stenosis. Communications: Call Doctor Stroke Electronically signed by: Kay London M.D. 06/30/24 20:45 PM Diagnostic Findings EKG as per my interpretation :Rate 80, NSR, LAD, LAFB, LVH, no ischemia
[2024-06-30] MEDS ORDERED: PHARMACIST DISCHARGE MED REC CONSULT PRN (22:19)
[2024-06-30] MEDS ORDERED: oxyCODONE HCL IR 5 MG TAB (IMMEDIATE RELEASE) PO PRN (22:24)
[2024-06-30] MEDS ORDERED: PROMETHAZINE 12.5 MG/50.5 ML BAG IV PRN (22:24)
[2024-06-30] MEDS ORDERED: LORazepam 0.5 MG TAB PO PRN (22:24)
[2024-06-30] MEDS ORDERED: ACETAMINOPHEN 325 MG TAB PO PRN ×2 (22:24→23:35)
[2024-06-30] MEDS ORDERED: CARBOHYDRATES FOR HYPOGLYCEMIA PO PRN (23:35)
[2024-06-30] MEDS ORDERED: GLUCOSE 10 TAB/TUBE PO PRN (23:35)
[2024-06-30] MEDS ORDERED: DEXTROSE 50% 50 ML SYRINGE IV PRN (23:35)
[2024-06-30] MEDS ORDERED: GLUCOSE 40% GEL 15 GM TUBE PO PRN (23:35)
[2024-06-30] MEDS ORDERED: GLUCAGON FOR INJ 1 MG VIAL SQ PRN (23:35)
[2024-06-30] MEDS: INSULIN ASPART PER UNIT CHARGE SC SCH (23:52)
--- NOTE | 2024-07-01 02:32 | Magnetic Resonance Report ---
Exam(s): MRI HEAD Without Contrast EXAM: MR Head Without Intravenous Contrast CLINICAL HISTORY: Reason for exam: tia. TECHNIQUE: Magnetic resonance images of the head/brain without intravenous contrast in multiple planes. COMPARISON: Prior head CT from June 30, 2024. FINDINGS: Brain: Mild nonspecific white matter changes. No mass. No hemorrhage. No acute infarct. The flow voids at the base of the brain are intact. Empty sella with enlarged diaphragmatic sellae. Ventricles: Unremarkable. No ventriculomegaly. Bones/joints: Unremarkable. No acute fracture. Sinuses: Chronic ethmoid sinusitis. No acute sinusitis. Mastoid air cells: Bilateral mastoid and left middle ear effusion. Orbits: Unremarkable as visualized. IMPRESSION: No evidence of acute intracranial pathology. Electronically signed by: Alyce Read MD 07/01/24 02:31 AM
[2024-07-01 03:28] VITALS: RESP 18
[2024-07-01 06:33] LABS: Basophils # (auto) 0.03 K/uL (0.00-0.20); Basophils % (auto) 0.6 %; Eosinophils # (auto) 0.22 K/uL (0.00-0.50); Eosinophils % (auto) 4.5 %; Hematocrit (blood only) 38.3 % (42.0-52.0); Hemoglobin 13.3 g/dl (14.0-18.0); Immature Granulocytes # (auto) 0.02 K/uL (0.01-0.20); Immature Granulocytes % (auto) 0.4 %; Lymphocytes # (auto) 1.06 K/uL (1.20-3.40); Lymphocytes % (auto) 21.8 %; Mean Corpuscular Hemoglobin 29.6 pg (25.0-34.0); Mean Corpuscular Hgb Conc 34.7 g/dL (32.0-36.0); Mean Corpuscular Volume 85.1 fL (80.0-100.0); Mean Platelet Volume 12.1 fL (9.4-12.4); Monocytes # (auto) 0.53 K/uL (0.11-0.59); Monocytes % (auto) 10.9 %; Neutrophils # (auto) 3.01 K/uL (1.40-6.50); Neutrophils % (auto) 61.8 %; Platelet Count 124 K/uL (130-400); RDW Coefficient of Variation 14.1 % (11.5-14.5); RDW Standard Deviation 43.5 fL (36.4-46.3); White Blood Count 4.87 K/ul (4.8-10.8)
[2024-07-01 06:47] LABS: BUN Creatinine Ratio 14.1 (10-20); Calcium 8.7 mg/dl (8.6-10.3); Chol HDL Ratio 2.4 (0-5); Creatinine Clr Calc Pharmacy 111.2 ml/min; Est GFR (Non-African American) 88.9 ml/min; Potassium 3.5 mmol/L (3.5-5.1)
--- NOTE | 2024-07-01 07:52 | XRay Report ---
XR chest 1V portable CLINICAL HISTORY: neuro deficit, acute stroke suspected TECHNIQUE: Single frontal radiograph of the chest was obtained. Comparison: None available at the time of this dictation. FINDINGS: No lines and tubes are seen. The cardiomediastinal silhouette is normal. The lungs are clear. No evid ence of pleural effusion or pneumothorax. IMPRESSION: No acute chest disease. ACT 112: Negative or not required by law. Electronically signed by: Erickson Waed M.D. 07/01/2024 7:51 AM
[2024-07-01] MEDS: LANTUS PER UNIT CHARGE SQ SCH (09:45)
[2024-07-01] MEDS: ATORVASTATIN 40 MG TAB PO SCH (09:45)
--- NOTE | 2024-07-01 09:57 | Neurology Consultation ---
Date of Consultation July 01, 2024 Assessment & Plan (1) Stroke-like symptom: Recommend continued stroke/TIA work up to include the following: Echocardiogram as part of complete stroke workup Continue frequent neurological assessments Obtain stat CT brain without contrast for any acute neurological decline Continue to monitor/control blood pressure & blood glucose Continue to monitor telemetry closely Recommend ZioPatch at DC if no evidence of arrhythmia during inpatient monitoring Continue to monitor renal and hepatic function, keep euvolemic Metabolic workup should include hgbA1c, fasting lipids, homocysteine, TSH, D Dimer, RPR, urinalysis Asses for response to plavix Recommend DAPT for at least 3 weeks Recommend high dose statin therapy indefinitely if tolerated Ok from neurology perspective for VTE prophylaxis PT/OT/SLT to eval and treat Recommend eval for TAYLOR and consider outpatient polysomnography Follow up outpatient Neurology Telehealth Consultation Telehealth Information Telehealth Information: I performed this visit using a real-time telehealth connection between my location and the patients location ([facility]). After connecting through interactive tele-video, patient was identified by name and date of and/or wristband check.Patient (or authorized healthcare inside account representative) was informed that this was a telemedicine visit and it was being conducted confidentially over secure lines. My office door was closed and no one else was present in the room with me.Patient (or authorized healthcare inside account representative) provided consent to proceed with the visit, expressed an understanding of privacy and security of the telemedicine visit, and gave permission to have a hospital inside account representative in the room in order to assist with the visit and to conduct portions of the visit, as needed. I informed the patient (or authorized healthcare inside account representative) that I reviewed their record and presented the opportunity for them to ask any questions regarding the visit today. The patient agreed to participate. History of Present Illness Reason for Consultation: Stroke/TIA Requesting Physician: Dr. Birmingham Attending Physician: Juancho Birmingham MD History of Present Illness 68yo male with hx of TIA was reported instructed to continue clopidogrel and statin indefinitely but unfortunately presented yesterday with acute onset feat ures of aphasia. Apparently was about to eat dinner sitting at table and suddenly could not speak appeared with some confusion difficulty expressive words. Arrived hypertensive was not considered a candidate for thrombolytic administration as reportedly symptoms resolved. He has undergone stroke imaging including CT brain without contrast, revealing no overt evidence of hemorrhage. CT angiographic studies of head and neck, also reveal no overt evidence of large vessel occlusion or significant/flow limiting stenosis. He has undergone MRI imaging with no apparent evidence of acute infarction. He is undergoing continued stroke/TIA workup. Agree with DAPT x 21 days and checking plavix response as may be beneficial to switch to ticagrelor. However notably patient suffering from ongoing thrombocytopenia. I have performed televideo consultation. He is alert & oriented; able to answer all questions appropriately, name objects on televideo monitor, repeat phrases and perform complex/embedded commands without deficit. Neurological exam is non lateralizing/nonfocal in terms of motor strength and coordination. NIHSS=0 Allergies Allergy/AdvReac Type Severity Reaction Status Date / Time ragweed pollen Allergy Watery Eye Unverified 09/17/18 15:38 Home Medications Medication Instructions Recorded Confirmed Type alprazolam 1 mg tablet (Xanax) 1 mg PO TID PRN Anxiety 09/17/18 06/30/24 History atorvastatin 40 mg tablet 40 mg PO QAM 09/17/18 06/30/24 History escitalopram oxalate 10 mg tablet 10 mg PO QAM 09/17/18 06/30/24 History metformin 1,000 mg tablet 1,000 mg PO BID 09/17/18 06/30/24 History valsartan 160 1 tab PO BID 09/17/18 06/30/24 History mg-hydrochlorothiazide 12.5 mg tablet clopidogrel 75 mg tablet (Plavix) 75 mg PO DAILY #30 tabs 09/18/18 06/30/24 Rx magnesium oxide 400 mg PO DAILY 06/30/24 06/30/24 History Patient History Family History Other FH: breast cancer FH: kidney cancer Hypertension Social History Smoking Status: Never smoker Hx Alcohol Use: No Hx Substance Use: No Preferred Language: Tongan Communication Ability: Effective Argon Tester Required: No Beliefs That Will Affect Care: None marital status: Single Current Living Situation: Spouse Current Living Situation Comment: lives at home with Other Information That Helps Us Care for You: No Feels Safe at Home: Yes Safety Concerns: Feels Safe At This Time Assistive Devices: CPAP and Glasses Physical Exam Neurological Examination: Mental Status: Awake and alert. Oriented to person, place, and time. Fluency naming repetition and comprehension appear grossly intact. Affect remains appropriate. CN testing: I: Denies changes in ability to smell II:Reports no changes in visual acuity III/IV/: No evidence of gaze preference, hippus, nystagmus or roving eye movements V: Facial sensation reportedly grossly intact to light touch bilaterally VII: Facial movements appear without evidence of asymmetry VIII: Hearing appears grossly intact to loud voice bilaterally IX/X: Palate appears to elevate symmetrically XI: Shoulder shrug appears symmetric/ grossly intact bilaterally XII: Tongue protrudes midline without evidence of biting Motor exam: Strength appears grossly intact/symmetric in all extremities Sensory: Sensation is reportedly grossly intact throughout Coordination: Finger to nose and heel to miranda were intact. No apparent evidence of dysmetria or dysdiadochokinesia Reflexes: Deferred Gait: Deferred Results & Data Vital Signs (Past 12 Hours) Vital Signs Temp Pulse Pulse Pulse Resp BP BP 07/01/24 07:46 07/01/24 07:37 36.5 C 62 18 175/90 H 07/01/24 06:12 59 L 07/01/24 03:12 36.4 C 61 18 156/83 H 06/30/24 23:27 69 06/30/24 23:22 36.7 C 70 20 155/83 H 06/30/24 22:05 70 19 159/87 H Pulse Ox O2 Del Method 07/01/24 07:46 Room Air 07/01/24 07:37 94 Room Air 07/01/24 06:12 07/01/24 03:12 93 Room Air 06/30/24 23:27 06/30/24 23:22 94 Room Air 06/30/24 22:05 94 Room Air Laboratory Results Abnormal lab results 06/30/24 06/30/24 06/30/24 Range/Units 20:06 20:07 20:11 RBC (4.70-6.10) M/uL Hgb (14.0-18.0) g/dl Hct (42.0-52.0) % Plt Count (130-400) K/uL Lymph # (Auto) 0.99 L (1.20-3.40) K/uL POC Chloride 98 L (101-112) mmol/L Glucose 128 H (70-99(Fasting)) mg/dl POC Glucose 124 H (70-99) mg/dl POC Glucose (other) 126 H (70-99) mg/dl Total Bilirubin 2.1 H (0.2-1.0) mg/dl Triglycerides (0-150) mg/dl VLDL Cholesterol, Calc (0-30) mg/dl 06/30/24 06/30/24 07/01/24 Range/Units 20:31 23:41 05:33 RBC 4.50 L (4.70-6.10) M/uL Hgb 13.3 L (14.0-18.0) g/dl Hct 38.3 L (42.0-52.0) % Plt Count 124 L (130-400) K/uL Lymph # (Auto) 1.06 L (1.20-3.40) K/uL POC Chloride (101-112) mmol/L Glucose 138 H (70-99(Fasting)) mg/dl POC Glucose 126 H 147 H (70-99) mg/dl POC Glucose (other) (70-99) mg/dl Total Bilirubin (0.2-1.0) mg/dl Triglycerides 161 H (0-150) mg/dl VLDL Cholesterol, Calc 32 H (0-30) mg/dl 07/01/24 Range/Units 08:03 RBC (4.70-6.10) M/uL Hgb (14.0-18.0) g/dl Hct (42.0-52.0) % Plt Count (130-400) K/uL Lymph # (Auto) (1.20-3.40) K/uL POC Chloride (101-112) mmol/L Glucose (70-99(Fasting)) mg/dl POC Glucose 167 H (70-99) mg/dl POC Glucose (other) (70-99) mg/dl Total Bilirubin (0.2-1.0) mg/dl Triglycerides (0-150) mg/dl VLDL Cholesterol, Calc (0-30) mg/dl Diagnostic Findings Chest X-Ray 06/30/24 20:11 XR chest 1V portable CLINICAL HISTORY: neuro deficit, acute stroke suspected TECHNIQUE: Single frontal radiograph of the chest was obtained. Comparison: None available at the time of this dictation. FINDINGS: No lines and tubes are seen. The cardiomediastinal silhouette is normal. The lungs are clear. No evidence of pleural effusion or pneumothorax. IMPRESSION: No acute chest disease. ACT 112: Negative or not required by law. Electronically signed by: Erickson Wade M.D. 07/01/2024 7:[address] 06/30/24 20:11 CR Exam(s): CT HEAD Without Contrast EXAM: CT Head Without Intravenous Contrast CLINICAL HISTORY: Reason for exam: neuro deficit, acute stroke suspected. TECHNIQUE: Axial computed tomography images of the head/brain without intravenous contrast. CTDI is 62.75 mGy and DLP is 1098.96 mGy-cm. Automated exposure control was utilized for the study. A dose lowering technique was utilized adhering to the principles of ALARA. COMPARISON: None. FINDINGS: Brain: No mass effect or acute infarct. No acute hemorrhage. Mild atrophy and chronic white matter disease. Ventricles: No hydrocephalus or midline shift. Bones/joints: No acute finding. Soft tissues: No scalp hematoma. Visualized Sinuses: Clear. Mastoid air cells: Severe left mastoid effusion. IMPRESSION: 1. Mild age-related findings. 2. No acute infarct, bleed, or acute intracranial abnormality. Communications: Call Doctor Stroke Electronically signed by: Kay London M.D. 06/30/24 20:44 PM Head CTA 06/30/24 20:11 CR Exam(s): CTA HEAD With Contrast IV Amt: 116 ml optiray 320 EXAM: CT Angiography Head With Intravenous Contrast CLINICAL HISTORY: Reason for exam: neuro deficit, acute stroke suspected. TECHNIQUE: Axial computed tomographic angiography images of the head with intravenous contrast. CTDI is 16.61 mGy and DLP is 8.3 mGy-cm. Automated exposure control was utilized for the study. A dose lowering technique was utilized adhering to the principles of ALARA. MIP reconstructed images were created and reviewed. Mild motion artifact. Venous contamination. CONTRAST: Patient received 116 ml optiray 320 of IV contrast COMPARISON: Head CT done earlier. FINDINGS: Right internal carotid artery: Patent. Right anterior cerebral artery: Patent. Right middle cerebral artery: Patent. Right posterior cerebral artery: Patent. Right vertebral artery: Patent. Left internal carotid artery: Patent. Left anterior cerebral artery: Patent. Left middle cerebral artery: Patent. Left posterior cerebral artery: Patent. Left vertebral artery: Patent. Dominant and ectatic. Basilar artery: Patent. Ectatic. Other: Patent dural venous sinuses. IMPRESSION: 1. No aneurysm or large vessel occlusion. Communications: Call Doctor Stroke Electronically signed by: Kay London M.D. 06/30/24 20:44 PM Neck CTA 06/30/24 20:11 CR Exam(s): CTA NECK With Contrast IV Amt: 116 ml optiray 320 EXAM: CT Angiography Neck With Intravenous Contrast CLINICAL HISTORY: Reason for exam: neuro deficit, acute stroke suspected. TECHNIQUE: Routine carotid CT angiography protocol was performed with intravenous contrast. NASCET criteria using the distal ICAs for comparison were used for evaluation of stenoses. CTDI is 13.7 mGy and DLP is 548.74 mGy-cm. Automated exposure control was utilized for the study. A dose lowering technique was utilized adhering to the principles of ALARA. MIP reconstructed images were created and reviewed. CONTRAST: Patient received 116 ml optiray 320 of IV contrast COMPARISON: None. FINDINGS: Right common carotid artery: Patent. Right internal carotid artery: Patent. Right vertebral artery: Patent. Left common carotid artery: Patent. Left internal carotid artery: Patent. Left vertebral artery: Patent. Left dominant system. Other: No significant carotid atherosclerosis or stenosis. IMPRESSION: 1. No dissection, occlusion, or significant stenosis. CAROTID STENOSIS REFERENCE USING NASCET CRITERIA: % ICA stenosis = (1 - narrowest ICA diameter/diameter of distal cervical ICA) x 100. Mild - <50% stenosis. Moderate - 50-69% stenosis. Severe - 70-94% stenosis. Near occlusion - 95-99% stenosis. Occluded - 100% stenosis. Communications: Call Doctor Stroke Electronically signed by: Kay London M.D. 06/30/24 20:45 PM Brain MRI 07/01/24 00:30 Exam(s): MRI HEAD Without Contrast EXAM: MR Head Without Intravenous Contrast CLINICAL HISTORY: Reason for exam: tia. TECHNIQUE: Magnetic resonance images of the head/brain without intravenous contrast in multiple planes. COMPARISON: Prior head CT from June 30, 2024. FINDINGS: Brain: Mild nonspecific white matter changes. No mass. No hemorrhage. No acute infarct. The flow voids at the base of the brain are intact. Empty sella with enlarged diaphragmatic sellae. Ventricles: Unremarkable. No ventriculomegaly. Bones/joints: Unremarkable. No acute fracture. Sinuses: Chronic ethmoid sinusitis. No acute sinusitis. Mastoid air cells: Bilateral mastoid and left middle ear effusion. Orbits: Unremarkable as visualized. IMPRESSION: No evidence of acute intracranial pathology. Electronically signed by: Alyce Read MD 07/01/24 02:31 AM Medications Administered Home Medications Medication Instructions Recorded Confirmed Last Taken alprazolam 1 mg tablet (Xanax) 1 mg PO TID PRN Anxiety 09/17/18 06/30/24 Unknown atorvastatin 40 mg tablet 40 mg PO QAM 09/17/18 06/30/24 06/30/24 escitalopram oxalate 10 mg tablet 10 mg PO QAM 09/17/18 06/30/24 06/30/24 metformin 1,000 mg tablet 1,000 mg PO BID 09/17/18 06/30/24 06/30/24 valsartan 160 1 tab PO BID 09/17/18 06/30/24 06/30/24 mg-hydrochlorothiazide 12.5 mg tablet clopidogrel 75 mg tablet (Plavix) 75 mg PO DAILY #30 tabs 09/18/18 06/30/2406/08 magnesium oxide 400 mg PO DAILY 06/30/24 06/30/24 06/30/24 Active Medications Generic Name Dose Route Start Last Admin Trade Name Freq PRN Reason Stop Dose Admin Atorvastatin Calcium 80 mg 07/01/24 09:00 07/01/24 09:45 Atorvastatin 40 Mg Tab PO 07/31/24 08:59 80 mg QAM VIVIEN Administration Potassium Chloride/Sodium Chloride 20 meq in 1,000 mls @ 50 mls/hr 06/30/24 21:38 06/30/24 22:01 Normal Saline W/20 Meq Kcl IV 07/01/24 17:37 50 mls/hr .Q20H ONE Administration Insulin Aspart 0 units 06/30/24 23:35 07/01/24 09:45 Insulin Aspart Per Unit Charge SC 07/30/24 23:34 5 units ACHS VIVIEN Administration Insulin Glargine 5 units 07/01/24 09:00 07/01/24 09:45 Lantus Per Unit Charge SQ 07/31/24 08:59 5 units DAILY VIVIEN Administration
[2024-07-01 11:30] VITALS: O2SAT 93
--- OUTSIDE RECORDS SUMMARY | 2024-07-01 11:34 | External Medical Summary | Summary of Care ---
Author Name Unknown Organization [facility] Address [address] [place] [address] Phone [phone] Care Team Providers Care Cut Off Machine Operator Name Role Phone Reed Leon MD Primary Care Provider [phone] Reason for Visit * Reason Comments Follow Up Encounter Details Date Type Department Care Team ([facility] st Contact Info) Description 01/17/2024 10:00 AM EDT Office Visit Otolaryngology [facility] [address] [place] [address] Jayjay Sow DO [address] [place] [address] Bilateral impacted cerumen* Allergies Active Allergy Reactions Criticality Noted Date Comments Ragweed 08/29/2016 Nasal congestion, watery, itchy eyes documented as of this encounter (statuses as of 01/17/2024) Medications Medication Sig Dispensed Refills Start Date End Date Status Glucose Blood In Vitro Strip Test as directed. livongo strips 0 Active CPAP every night at bedtime. 0 Active ALPRAZolam 1 MG Oral Tablet (xaNAX)Indications:A nxiety Take 1 Tablet (1 mg) by mouth in the morning and 1 Tablet (1 mg) at noon and 1 Tablet (1 mg) before bedtime. 30 Tablet 0 09/20/2022 Active Clopidogrel Bisulfate 75 MG Oral Tablet (pLAVix) TAKE 1 TABLET BY MOUTH IN THE MORNING. 90 Tablet 3 06/04/2023 Active metFORMIN HCl 1000 MG Oral Tablet (Glucophage) TAKE 1 TABLET BY MOUTH TWICE A DAY WITH BREAKFAST AND DINNER. 180 Tablet 1 08/02/2023 Active Atorvastatin Calcium 40 MG Oral Tablet (Lipitor)Indications :Mixed dyslipidemia TAKE ONE TABLET BY MOUTH IN THE MORNING 90 Tablet 3 10/29/2023 Active Valsartan-hydroCHLOR Othiazide 160-12.5 MG Oral Tablet (Diovan Hct)Indications:HTN, goal below 140/90 TAKE TWO TABLETS BY MOUTH ONCE DAILY 180 Tablet 3 12/09/2023 Active Escitalopram Oxalate 10 MG Oral Tablet (Lexapro)Indications :Anxiety Take 1 Tablet by mouth in the morning. 90 Tablet 3 12/09/2023 Active documented as of this encounter (statuses as of 01/17/2024) Active Problems Problem Noted Date Diagnosed Date Sigmoid diverticulosis 09/03/2023 Seasonal allergic rhinitis due to pollen 022 Obesity, Class I, BMI 30.0-34.9 (see actual BMI) 09/11/2021 Thrombocytopenia 04/24/2021 TAYLOR (obstructive sleep apnea) 02/22/2021 Overview: DME: [facility] ( Fax: ) ANNA (generalized anxiety disorder) 02/21/2021 History of TIA (transient ischemic attack) 02/21 HTN, goal below 130/80 08/27/2016 Type 2 diabetes mellitus wit h hemoglobin A1c goal of less than 8.0% 08/27/2016 documented as of this encounter (statuses as of 01/17/2024) Resolved Problems Problem Noted Date Diagnosed Date Resolved Date Aphasia 10/13/2018 12/19/2018 Mixed dyslipidemia 04/04/2018 1 Anxiety 08/27/2016 02/21/2021 documented as of this encounter (statuses as of 01/17/2024) Immunizations Name Administration Dates Next Due COVID-19 mRNA, LNP-s, No Pre serve, 2-Dose Series (Birthday Gorilla) 01/19/2021,12/19/2020 COVID-19, LNP-s, No Preserve , Abelino-sucrose, Ages 12+ (Birthday Gorilla) 02/13/2022,07/24/2021 Covid-19, Mrna, Lnp-s, Pf, B ivalent, 30 Mcg, IM, 12 yrs and above (Pfizer) 06/29/2022 Pneumococcal Conjugate Vacc, 13 Valent (Prevnar) 06/25/2020 Pneumococcal Polysaccharide PPV23 (Pneumovax) 08/27/2016 Season Influenza, Quad, PF, Adjuvanted, 65+ Yrs, IM (FLUAD) 06/18/2020 Seasonal Influenza, PF, 6 M & above, IM , (FluLaval or Fluzone) 07/08/2021,06/23/2019,06/19/2018 Seasonal Influenza, Quadriva lent Hd (Fluzone Hd) 06/22/2023,06/23/2022 Seasonal Influenza, Quadriva lent, No Preserve, IM 06/17/2017,08/25/2016 TDAP (age 10 and older)(Boostrix) 08/27/2016 Varicella Zoster Vaccine (Adult) 03/21/2017 Zoster Vaccine Recombinant (Shingrix) 06/23/2019 ,06/19/2018 documented as of this encounter Social History Tobacco Use Types Packs/Day Years Used Date Smoking Tobacco: Never Smokeless Tobacco: Never Alcohol Use Standard Drinks/Week Comments Never 0 (1 standard drink = 0.6 oz pur e alcohol) PHQ-2 Answer Date Recorded PHQ-2 Score -1 06/26/2020 Hunger Vital Sign Answer Date Recorded Within the past 12 months, y ou worried that your food would run out before you got the money to buy more. Never true 04/03/20 23 Within the past 12 months, t he food you bought just didn't last and you didn't have money to get more. Never true 04/03/2023 Sex and Gender Information Value Date Recorded Sex Assigned at Male 09/10/2022 1:17 PM EST Gender Identity Male 09/10/2022 1:17 PM EST Sexual Orientation Straight 09/10/2022 1: 17 PM EST Job Start Date Occupation Industry Not on file Not on file Not on file documented as of this encounter Last Filed Vital Signs Vital Sign Reading Time Taken Comments Blood Pressure - - Pulse - - Temperature 35.9 C (96.7 F) 01/17/2024 1 0:00 AM EDT Respiratory Rate - - Oxygen Saturation - - Inhaled Oxygen Concentration - - Weight 113.8 kg (250 lb 12.8 oz) 2023 10:00 AM EDT Height 190.5 cm (6' 3") 01/17/2024 10:0 0 AM EDT Body Mass Index 31.35 01/17/2024 10:00 AM EDT documented in this encounter Progress Notes * Jayjay Sow DO - 01/17/2024 10:21 AM EDT Otolaryngology Head and Neck Surgery 01/17/2024 Procedure: Cerumen removal Attention directed to the right ear. Under pop-microscopic guidance the impacted cerumen was removed with a suction atraumatically. The tympanic membrane was intact and the middle ear was healthy appearing. The same procedure was performed on the other side. Patient tolerated the procedure well. Procedure: In order to assess ears in further detail, the patient was brought to the microscope room and the ears were evaluated under the operating microscope. The findings are as noted in procedure note above. Assessment: 68-year-old male with bilateral cerumen impactions Plan: Cerumen removed as above Follow-up 3 months Jayjay Sow DO, [facility] Otolaryngology Head and Neck [place] 01/17/2024 10:22 AM documented in this encounter Nursing Notes * Ese St LPN - 01/17/2024 9:59 AM EDT Pt presents today for an ear check. Pt states he has been getting more cerumen build up than usual. documented in this encounter Plan of Treatment Upcoming Encounters Date Type Department Care Team (Late st Contact Info) Description 04/17/2024 11:30 AM EDT Office Visit Otolaryngology [facility] [address] [facility] [place] [address] Jayjay Sow DO [address] [facility] [place] [address] 04/28/2024 1:20 PM EDT Office Visit Family Practice [facility] [address] [place] [address] Reed Leon MD [address] [place] [address] Scheduled Procedures Name Priority Associated Diagnoses Date/Ti me COLONOSCOPY FLEXIBLE PROXIMA L DIAGNOSTIC Recall History of colon polyps Abnormal colonoscopy Health Maintenance Due Date Last Done Comments Depression Screening 06/25/2021 06/25/2020 Pneumococcal Vaccine: 65+ Years (3 of 3 - PPSV23 or PCV20) 08/27/2021 06/25/2020, 08/27/2016 COVID-19 Vaccine ( season) 2023 06/29/2022, 02/13/2022, 07/24/2021, Additional history exists Albumin/Creatinine Ratio 09/14/2023 022, 06/25/2020, 12/18/2017, Additional history exists HbA1c 04/20/2024 10/21/2023, 06/0 02/2023, 09/14/2022, Additional history exists B-12 10/21/2024 10/21/2023, 12/0 06/2022, 05/01/2021, Additional history exists Diabetic Foot Exam 10/21/2024 10/21/2023, 0 06/25/2020, 06/23/2019, Additional history exists GFR 10/21/2024 10/21/2023, 12/0 06/2022, 04/24/2021, Additional history exists Diabetic Eye Exam 12/08/2024 12/09/2023, , 01/29/2022, Additional history exists DTaP,Tdap,and Td Vaccines (2 - Td or Tdap) 08/27/2026 08/27/2016 COLONOSCOPY-EVERY 3 YRS AGES 18-100 09/03/2026 09/03/2023, 09/03/2023, 08/22/2020, Additional history exists Lipid Panel 10/14/2028 10/14/2023, 06/0 11/2021, 04/24/2021, Additional history exists Zoster Vaccines Completed 06/23/2019, 06/07, 03/21/2017 Influenza Vaccine (FLU shot) Completed 06/22/2023, 06/23/2022, 07/08/2021, Additional history exists COLONOSCOPY-EVERY 2 YRS AGES 18-100 Discontinued 09/03/2023, 09/03/2023, 08/22/2020, Additional history exists GARDASIL-HPV IMMUNIZATION SERIES Aged Out No longer eligible based on patient's age to complete this topic Hepatitis B Aged Out No longer eligi ble based on patient's age to complete this topic MENINGOCOCCAL (MENACTRA/MENVEO) Aged Out No longer eligible based on patient's age to complete this topic documented as of this encounter Medical Devices Not on filedocumented as of this encounter Visit Diagnoses Diagnosis Bilateral impacted cerumen- Primary Impacted cerumen documented in this encounter Care Teams Cut Off Machine Operator Relationship Specialty Start Date End Date Reed Leon MD [address] [facility] [place] [address] PCP - General Family Medicine 02/22/21 documented as of this encounter
--- OUTSIDE RECORDS SUMMARY | 2024-07-01 11:34 | External Medical Summary ---
Author Name Unknown Address Unknown Organization [facility] [address] [place] [id number] Laboratory Report Ordering Provider Test Date Status LALY ANGUIANO 05/12/2024 14:11:23 Final Observation Date Value Abnormality Reference (Units ) Status MYCODE SPECIMEN-SST 05/12/2024 14:11:23 Freezing of extracted DNA, whole blood and/or serum. Final Performing Location [facility] [address] [place] [address]
--- OUTSIDE RECORDS SUMMARY | 2024-07-01 11:34 | External Medical Summary | Summary of Care ---
Author Name Unknown Organization [facility] Address [address] [place] [address] Phone [phone] Care Team Providers Care Perfect Binder Feeder Offbearer Name Role Phone Татьяна Perez MD Primary Care Provider [phone] [phone] Reason for Visit * Reason Comments Medication Refill Encounter Details Date Type Department Care Team (Late st Contact Info) Description 02/01/2024 Refill Family Practice [facility] [address] [place] [address] Татьяна Perez MD [address] [place] [address] Allergies Active Allergy Reactions Criticality Noted Date Comments Ragweed 08/29/2016 Nasal congestion, watery, itchy eyes documented as of this encounter (statuses as of 02/03/2024) Medications Medication Sig Dispensed Refills Start Date End Date Status Glucose Blood In Vitro Strip Test as directed. livongo strips 0 Active CPAP every night at bedtime. 0 Active Clopidogrel Bisulfate 75 MG Oral Tablet (pLAVix) TAKE 1 TABLET BY MOUTH IN THE MORNING. 90 Tablet 3 06/04/2023 Active Atorvastatin Calcium 40 MG Oral Tablet (Lipitor)Indicatio ns:Mixed dyslipidemia TAKE ONE TABLET BY MOUTH IN THE MORNING 90 Tablet 3 10/29/2023 Active Valsartan-hydroCHL OROthiazide 160-12.5 MG Oral Tablet (Diovan Hct)Indications:HT N, goal below 140/90 TAKE TWO TABLETS BY MOUTH ONCE DAILY 180 Tablet 3 12/09/2023 Active Escitalopram Oxalate 10 MG Oral Tablet (Lexapro)Indicatio ns:Anxiety Take 1 Tablet by mouth in the morning. 90 Tablet 3 12/09/2023 Active ALPRAZolam 1 MG Oral Tablet (xaNAX)Indications :Anxiety Take 1 Tablet (1 mg) by mouth in the morning and 1 Tablet (1 mg) at noon and 1 Tablet (1 mg) before bedtime. 30 Tablet 0 01/28/2024 Active metFORMIN HCl 1000 MG Oral Tablet (Glucophage) TAKE 1 TABLET BY MOUTH TWICE A DAY WITH BREAKFAST AND DINNER. 180 Tablet 1 02/03/2024 Active metFORMIN HCl 1000 MG Oral Tablet (Glucophage) TAKE 1 TABLET BY MOUTH TWICE A DAY WITH BREAKFAST AND DINNER. 180 Tablet 1 08/02/2023 Discontinue d(Refill) documented as of this encounter (statuses as of 02/03/2024) Active Problems Problem Noted Date Diagnosed Date Sigmoid diverticulosis 09/03/2023 Seasonal allergic rhinitis due to pollen 022 Obesity, Class I, BMI 30.0-34.9 (see actual BMI) 09/11/2021 Thrombocytopenia 04/24/2021 TAYLOR (obstructive sleep apnea) 02/22/2021 Overview: DME: [facility] ( Fax: ) ANNA (generalized anxiety disorder) 02/21/2021 History of TIA (transient ischemic attack) 02/21 HTN, goal below 130/80 08/27/2016 Type 2 diabetes mellitus wit h hemoglobin A1c goal of less than 8.0% 08/27/2016 documented as of this encounter (statuses as of 02/03/2024) Resolved Problems Problem Noted Date Diagnosed Date Resolved Date Aphasia 10/13/2018 12/19/2018 Mixed dyslipidemia 04/04/2018 1 Anxiety 08/27/2016 02/21/2021 documented as of this encounter (statuses as of 02/03/2024) Immunizations Name Administration Dates Next Due COVID-19 mRNA, LNP-s, No Pre serve, 2-Dose Series ([employer]) 01/19/2021,12/19/2020 COVID-19, LNP-s, No Preserve , Abelino-sucrose, Ages 12+ (Pfizer) 02/13/2022,07/24/2021 Covid-19, Mrna, Lnp-s, Pf, B ivalent, [...] on file documented as of this encounter Miscellaneous Notes * Telephone Encounter - Susan Leblanc, [facility] - 02/03/2024 2:12 PM EDTSigned Prescriptions: Disp Refills metFORMIN HCl 1000 MG Oral Tablet (Glucoph*180 Ta*1 Sig: TAKE 1TABLET BY MOUTH TWICE A DAY WITH BREAKFAST AND DINNER.Authorizing Provider: ТАТЬЯНА PEREZ User: SUSAN LEBLANC documented in this encounter Plan of Treatment Upcoming Encounters Date Type Department Care Team (Late st Contact Info) Description 04/17/2024 11:30 AM EDT Office Visit Otolaryngology [facility] [address] [place] [address] Jayjay Sow DO [address] [place] [address] 04/28/2024 1:20 PM EDT Office Visit Family Practice [facility] [address] [place] [address] Татьяна Perez MD [address] [place] [address] Scheduled Procedures Name Priority Associated Diagnoses Date/Ti me COLONOSCOPY FLEXIBLE PROXIMA L DIAGNOSTIC Recall History of colon polyps Abnormal colonoscopy Health Maintenance Due Date Last Done Comments Cologuard 1999 Fecal Occult Blood Test 1999 Sigmoidoscopy 1999 Depression Screening 06/25/2021 06/25/2020 Pneumococcal Vaccine: 65+ Years (3 of 3 - PPSV23 or PCV20) 08/27/2021 06/25/2020, 08/27/2016 COVID-19 Vaccine (2022- season) 2023 06/29/2022, 02/13/2022, 07/24/2021, Additional history exists Albumin/Creatinine Ratio 09/14/2023 022, 06/25/2020, 12/18/2017, Additional history exists HbA1c 04/20/2024 10/21/2023, 06/0 02/2023, 09/14/2022, Additional history exists B-12 10/21/2024 10/21/2023, 12/0 06/2022, 05/01/2021, Additional history exists Diabetic Foot Exam 10/21/2024 10/21/2023, 0 06/25/2020, 06/23/2019, Additional history exists GFR 10/21/2024 10/21/2023, 120 06/2022, 04/24/2021, Additional history exists Diabetic Eye Exam 12/08/2024 12/09/2023, , 01/29/2022, Additional history exists DTaP,Tdap,and Td Vaccines (2 - Td or Tdap) 08/27/2026 08/27/2016 Colonoscopy 09/03/2026 09/03/2023, 08/08, 08/22/2020, Additional history exists Colorectal Cancer Screening 09/03/2026 Lipid Panel 10/14/2028 10/14/2023, 060 11/2021, 04/24/2021, Additional history exists Zoster Vaccines Completed 06/23/2019, 06/07, 03/21/2017 Influenza Vaccine (FLU shot) Completed 06/22/2023, 06/23/2022, 07/08/2021, Additional history exists RETIRED - COLONOSCOPY-EVERY 2 YRS AGES 18-100 Discontinued 09/03/2023, [...] Not on filedocumented as of this encounter Care Teams Perfect Binder Feeder Offbearer Relationship Specialty Start Date End Date Татьяна Perez MD [address] [place] [address] PCP - General Family Medicine 02/22/21 documented as of this encounter
--- OUTSIDE RECORDS SUMMARY | 2024-07-01 11:34 | External Medical Summary | Summary of Care ---
Author Name Unknown Organization [facility] Address [address] [place] [address] Phone [phone] Care Team Providers Care Agile Java Developer Name Role Phone Reed Leon MD Primary Care Provider [phone] [phone] Encounter Details Date Type Department Care Team (Late st Contact Info) Description 05/07/2024 Orders Only PATIENT PORTAL DO NOT DELETE THIS DEPT USED BY [place] [id number] Allergies Active Allergy Reactions Criticality Noted Date Comments Ragweed 08/29/2016 Nasal congestion, watery, itchy eyes documented as of this encounter (statuses as of 05/07/2024) Medications Medication Sig Dispensed Refills Start Date End Date Status Glucose Blood In Vitro Strip Test as directed. livongo strips Active CPAP every night at bedtime. Active ALPRAZolam 1 MG Oral Tablet (xaNAX)Indications:A nxiety Take 1 Tablet (1 mg) by mouth in the morning and 1 Tablet (1 mg) at noon and 1 Tablet (1 mg) before bedtime. 30 Tablet 01/28/2024 Active Clopidogrel Bisulfate 75 MG Oral Tablet (pLAVix) TAKE 1 TABLET BY MOUTH IN THE MORNING. 90 Tablet 3 05/05/2024 Active Atorvastatin Calcium 40 MG Oral Tablet (Lipitor)Indications :Mixed dyslipidemia TAKE ONE TABLET BY MOUTH IN THE MORNING 90 Tablet 3 05/05/2024 Active Valsartan-hydroCHLOR Othiazide 160-12.5 MG Oral Tablet (Diovan Hct)Indications:HTN, goal below 140/90 TAKE TWO TABLETS BY MOUTH ONCE DAILY 180 Tablet 3 05/05/2024 Active Escitalopram Oxalate 10 MG Oral Tablet (Lexapro)Indications :Anxiety Take 1 Tablet by mouth in the morning. 90 Tablet 3 05/05/2024 Active metFORMIN HCl 1000 MG Oral Tablet (Glucophage) TAKE 1 TABLET BY MOUTH TWICE A DAY WITH BREAKFAST AND DINNER. 180 Tablet 1 05/05/2024 Active Diclofenac Sodium 1 % External Gel (Voltaren) Apply 2 g topically to affected area in the morning and 2 g before bedtime. Apply to hands. 300 g 2 05/05/2024 Active documented as of this encounter (statuses as of 05/07/2024) Active Problems Problem Noted Date Diagnosed Date Sigmoid diverticulosis 09/03/2023 Seasonal allergic rhinitis due to pollen 022 Obesity, Class I, BMI 30.0-34.9 (see actual BMI) 09/11/2021 Thrombocytopenia 04/24/2021 TAYLOR (obstructive sleep apnea) 02/22/2021 Overview: DME: [facility] ( Fax: ) ANNA (generalized anxiety disorder) 02/21/2021 History of TIA (transient ischemic attack) 02/21 HTN, goal below 130/80 08/27/2016 Type 2 diabetes mellitus wit h hemoglobin A1c goal of less than 8.0% 08/27/2016 documented as of this encounter (statuses as of 05/07/2024) Resolved Problems Problem Noted Date Diagnosed Date Resolved Date Aphasia 10/13/2018 12/19/2018 Mixed dyslipidemia 04/04/2018 1 Anxiety 08/27/2016 02/21/2021 documented as of this encounter (statuses as of 05/07/2024) Immunizations Name Administration Dates Next Due COVID-19 mRNA, LNP-s, No Pre serve, 2-Dose Series ([employer]) 01/19/2021,12/19/2020 COVID-19, LNP-s, No Preserve , Abelino-sucrose, [...] pur e alcohol) PHQ-2 Answer Date Recorded PHQ Adult Total Score 1 05/05/2024 Hunger Vital Sign Answer Date Recorded Within the past 12 months, y ou worried that your food would run out before you got the money to buy more. Never true 05/05/20 24 Within the past 12 months, t he food you bought just didn't last and you didn't have money to get more. Never true 05/05/2024 Childcare Answer Date Recorded Do you feel overwhelmed with taking care of a child, family member or friend? Yes 05/05/2024 Does your family need help f inding childcare? (Household - for ages 0-17 years) Not on file 05/05/2024 Clothing Answer Date Recorded Have you been unable to get clothing when it was really needed? No 05/05/2024 Is your family able to get c lothes or diapers when needed? (Household - for ages 0-17 years) Not on file 05/05/2024 Personal Safety Answer Date Recorded Do you feel unsafe or have concerns for your saf ety? No 05/05/2024 Do you have concerns for you r family's safety? (Household - for ages 0-17 years) Not on file 05/05/2024 Utilities Answer Date Recorded Do you have trouble paying y our heating, water, or electric bill? No 05/05/2024 Is your family able to pay t he heat, water, or electric bill? (Household - for ages 0-17 years) Not on file 05/05/2024 Does your family have access to good internet? (Household - for ages 0-17 years) Not on file 05/05/2024 Employment Status Answer Date Recorded Are you unemployed or without regular income? No 05/05/2024 Does the household have a re lar source of income? (Household - for ages 0-17 years) Not on file 05/05/2024 Social Connections Answer Date Recorded How often do you feel lonely or isolated from th ose around you? Rarely 05/05/2024 Financial Resource Strain Answer Date R ecorded Do you have any trouble payi ng for your medications, or do you think you might in the future? No 05/05/2024 Does your family have troubl e paying for medicine? (Household - for ages 0-17 years) Not on file 05/05/2024 Transportation Needs Answer Date Record ed Do you have trouble getting a ride to medical visits or work? (Adult - for ages 18 years and over) Not on file 05/05/2024 Does your family have a hard time getting a ride to doctors visits? (Household - for ages 0-17 years) Not on file 05/05/2024 Has lack of transportation k ept you from medical appointments, meetings, work, or from getting things needed for daily living? Check all that apply. No 05/05/2024 Do you (or your family) have trouble finding or paying for a ride (transportation)? (Household - for ages 0-17 years) Not on file 05/05/2024 Housing Stability Answer Date Recorded Do you currently live in a s helter or have no steady place to sleep at night? No 05/05/2024 Do you think you are at risk of becoming homeless? (Adult - for ages 18 years and over) Not on file 05/05/2024 Does your family worry about paying for your home or becoming homeless? (Household - for ages 0-17 years) Not on file 0 05/05/2024 Are you homeless or worried that you might be in the future? No 05/05/2024 Are you (or your family) yogesh eless or worried that you might be in the future? (Household - for ages 0-17 years) Not on file Food Insecurity Answer Date Recorded Do you need food for this week? No 05/05/2024 Are you able to get enough f ood for your family? (Household - for ages 0-17 years) Not on file 05/05/2024 Does your family need food t his week? (Household - for ages 0-17 years) Not on file 05/05/2024 Do you always have enough fo od for your family? (Household - for ages 0-17 years) Not on file 05/05/2024 Sex and Gender Information Value Date Recorded Sex Assigned at Male 09/10/2022 1:17 PM EST Gender Identity Male 09/10/2022 1:17 PM EST Sexual Orientation Straight 09/10/2022 1: 17 PM EST Job Start Date Occupation Industry Not on file Not on file Not on file documented as of this encounter Plan of Treatment Upcoming Encounters Date Type Department Care Team (Late st Contact Info) Description 07/24/2024 11:30 AM EDT Office Visit Otolaryngology [facility] [address] [place] [address] Jayjay Sow, [address] [place] [address] Scheduled Procedures Name Priority Associated Diagnoses Date/Ti me COLONOSCOPY FLEXIBLE PROXIMA L DIAGNOSTIC Recall History of colon polyps Abnormal colonoscopy Health Maintenance Due Date Last Done Comments Cologuard 1999 Fecal Occult Blood Test 1999 Sigmoidoscopy 1999 Pneumococcal Vaccine: 65+ Years (3 of 3 - PPSV23 or PCV20) 08/27/2021 06/25/2020, 08/27/2016 COVID-19 Vaccine ( season) 2023 06/29/2022, 02/13/2022, 07/24/2021, Additional history exists Albumin/Creatinine Ratio 09/14/2023 022, 06/25/2020, 12/18/2017, Additional history exists HbA1c 04/20/2024 10/21/2023, 06/0 02/2023, 09/14/2022, Additional history exists Influenza Vaccine (FLU shot) (#1) 2024 06/22/2023, 06/23/2022, 07/08/2021, Additional history exists B-12 10/21/2024 10/21/2023, 12/0 06/2022, 05/01/2021, Additional history exists Diabetic Foot Exam 10/21/2024 10/21/2023, 0 06/25/2020, 06/23/2019, Additional history exists GFR 10/21/2024 10/21/2023, 12/0 06/2022, 04/24/2021, Additional history exists Diabetic Eye Exam 12/08/2024 12/09/2023, , 01/29/2022, Additional history exists Depression Screening 05/05/2025 05/05/2024 DTaP,Tdap,and Td Vaccines (2 - Td or Tdap) 08/27/2026 08/27/2016 Colonoscopy 09/03/2028 09/03/2023, 08/08, 08/22/2020, Additional history exists Colorectal Cancer Screening 09/03/2028 Lipid Panel 10/14/2028 10/14/2023, 060 11/2021, 04/24/2021, Additional history exists Hepatitis C Screening Completed 12/18/2017 Zoster Vaccines Completed 06/23/2019, 06/07, 03/21/2017 RETIRED - COLONOSCOPY-EVERY 2 YRS AGES 18-100 Discontinued 09/03/2023, 09/03/2023, 08/22/2020, Additional history exists HPV (Gardasil) Vaccine Aged Out No lo nger eligible based on patient's age to complete this topic Hepatitis B Vaccine Aged Out No longe r eligible based on patient's age to complete this topic MENINGOCOCCAL (MENACTRA/MENVEO) Aged Out No longer eligible based on patient's age to complete this topic documented as of this encounter Medical Devices Not on filedocumented as of this encounter Care Teams Agile Java Developer Relationship Specialty Start Date End Date Reed Leon MD [address] [place] [address] PCP - General Family Medicine 02/22/21 documented as of this encounter
--- OUTSIDE RECORDS SUMMARY | 2024-07-01 11:34 | External Medical Summary ---
Author Name Unknown Address Unknown Organization [id number]:[facility] [address] [place] [id number] Laboratory Report Ordering Provider Test Date Status HUSSAIN,DURA 05/12/2024 14:11:23 Final Observation Date Value Abnormality Reference (Units ) Status WBC, Total 05/12/2024 14:11:23 5.91 4.00-10.8 0 (K/uL) Final RBC 05/12/2024 14:11:23 4.67 4.50-5.25 (M/uL) Final Hemoglobin 05/12/2024 14:11:23 13.9 Below low normal 14 .0-16.8 (g/dL) Final HCT 05/12/2024 14:11:23 40.9 40.0-48.4 (%) Final MCV 05/12/2024 14:11:23 87.6 82.0-99.5 (fL) Final MCH 05/12/2024 14:11:23 29.8 27.0-34.0 (pg) Final MCHC 05/12/2024 14:11:23 34.0 32.0-36.0 (g/dL) Final RDW 05/12/2024 14:11:23 14.4 11.5-15.5 (%) Final Platelets 05/12/2024 14:11:23 135 Below low normal 140 -400 (K/uL) Final MPV 05/12/2024 14:11:23 12.1 6.6-11.1 ( fL) Final Performing Location [facility] [address] [place] [id number]
--- OUTSIDE RECORDS SUMMARY | 2024-07-01 11:34 | External Medical Summary | Summary of Care ---
Author Name Unknown Organization [facility] Address [address] [place] [address] Phone [phone] Care Team Providers Care Slitter And Cutter Operator Name Role Phone Reed Leon MD Primary Care Provider [phone] Reason for Visit * Reason Onset Date Comments Medication Administration 06/29/2024 Flu an d/or Pneumo Inj Encounter Details Date Type Department Care Team (Late st Contact Info) Description 06/29/2024 12:40 PM EDT Immunization [facility] [address] [place] [address] [facility] [address] [place] [address] Need for prophylactic vaccination and inoculation against influenza* Allergies Active Allergy Reactions Criticality Noted Date Comments Ragweed 08/29/2016 Nasal congestion, watery, itchy eyes documented as of this encounter (statuses as of 06/29/2024) Medications Medication Sig Dispensed Refills Start Date [...] as of this encounter (statuses as of 06/29/2024) Active Problems Problem Noted Date Diagnosed Date Sigmoid diverticulosis 09/03/2023 Seasonal allergic rhinitis due to pollen 022 Obesity, Class I, BMI 30.0-34.9 (see actual BMI) 09/11/2021 Thrombocytopenia 04/24/2021 TAYLOR (obstructive sleep apnea) 02/22/2021 Overview: DME: [facility] ( Fax: ) ANNA (generalized anxiety disorder) 02/21/2021 History of TIA (transient ischemic attack) 02/21 HTN, goal below 130/80 08/27/2016 Type 2 diabetes mellitus wit h hemoglobin A1c goal of less than 8.0% 08/27/2016 documented as of this encounter (statuses as of 06/29/2024) Resolved Problems Problem Noted Date Diagnosed Date Resolved Date Aphasia 10/13/2018 12/19/2018 Mixed dyslipidemia 04/04/2018 Anxiety 08/27/2016 02/21/2021 documented as of this encounter (statuses as of 06/29/2024) Immunizations Name Administration Dates Next Due COVID-19 mRNA, LNP-s, No Pre serve, 2-Dose Series (Pfizer) 01/19/2021,12/19/2020 COVID-19, LNP-s, No Preserve , Abelino-sucrose, Ages 12+ (Pfizer) 02/13/2022,07/24/2021 Covid-19, Mrna, Lnp-s, Pf, B ivalent, 30 Mcg, IM, 12 yrs and above (Pfizer) 06/29/2022 Pneumococcal Conjugate Vacc, 13 Valent (Prevnar) 06/25/2020 Pneumococcal Polysaccharide PPV23 (Pneumovax) 08/27/2016 Season Influenza, Quad, PF, Adjuvanted, 65+ Yrs, IM (FLUAD) 06/18/2020 Seasonal Influenza, High Dos e, Trivalent, PF, IM (Fluzone HD) 06/29/2024 Seasonal Influenza, PF, 6 M & above, [...] No 05/05/2024 Does the household have a [facility] source of income? (Household - for ages [...] on file documented as of this encounter Patient Instructions * Patient Instructions* Adelaida Silva LPN - 06/29/2024 12:41 PM EDT ~~PATIENT INSTRUCTIONS FOR FLU SHOT~~ Possible side effects of influenza vaccine, (flu shot), are usually mild and include: 1. Soreness or redness at injection site 2. Low grade fever 3. Body aches You may use Tylenol/Acetaminophen as needed for these symptoms. LET YOUR DOCTOR KNOW IMMEDIATELY IF YOU HAVE DIFFICULTY BREATHING OR SWALLOWING, EXPERIENCE ITCHINGOF FEET OR HANDS, HAVE SWELLING OF EYES, FACE OR INSIDE OF NOSE. documented in this encounter Progress Notes * Adelaida Silva LPN - 06/29/2024 12:38 PM EDT PRE - ADMINISTRATION DOCUMENTATION Are you experiencing any cold symptoms or fever? No Have you had Guillain-Tougaloo Syndrome (an illness that causes paralysis) within the last 6 weeks? No Have you had the flu shot in the past? YES and NO Have you ever had a reaction to the flu shot? No Adelaida Silva LPN, 06/29/2024 12:38 PM Immunization Administration Documentation Time Out Procedure Performed: Yes Patient Identified (Ask Name/Date of ): Yes Does the patient have a fever greater than 101 degrees today? No Patient allergic to latex? No VFC Stock: No Immunization(s) verified: Yes, Immunization Name: Flu, VIS Sheet(s) given: Yes Verified Side and Site: Yes Verified Shot(s) with Parent(s)/Patient: Yes documented in this encounter Plan of Treatment Upcoming Encounters Date Type Department Care Team (Late st Contact Info) Description 07/07/2024 3:45 PM EDT Immunization [facility] [address] [place] [address] Loly Hernadez [facility] [address] [place] [address] 07/24/2024 11:30 AM EDT Office Visit Otolaryngology [facility] [address] [place] [address] Jayjay Sow DO [address] [place] [address] 10/21/2024 11:40 AM EST Office Visit Family Practice [facility] [address] [place] [address] Reed Leon MD [address] [place] [address] Scheduled Procedures Name Priority Associated Diagnoses Date/Ti me COLONOSCOPY FLEXIBLE PROXIMA L DIAGNOSTIC Recall History of colon polyps Abnormal colonoscopy Health Maintenance Due Date Last Done Comments Cologuard 1999 Fecal Occult Blood Test 1999 Sigmoidoscopy 1999 Adult Wellness Visit 2020 Pneumococcal Vaccine: 65+ Years (3 of 3 - PPSV23 or PCV20) 08/27/2021 06/25/2020, 08/27/2016 COVID-19 Vaccine ( season) 2024 06/29/2022, 02/13/2022, 07/24/2021, Additional history exists B-12 10/21/2024 10/21/2023, 120 06/2022, 05/01/2021, Additional history exists Diabetic Foot Exam 10/21/2024 10/21/2023, 0 06/25/2020, 06/23/2019, Additional history exists GFR 10/21/2024 10/21/2023, 1206/2022, 04/24/2021, Additional history exists HbA1c 2024 05/12/2024, 10/07, 03/11/2023, Additional history exists Diabetic Eye Exam 12/08/2024 12/09/2023, , 01/29/2022, Additional history exists Depression Screening 05/05/2025 05/05/2024 Albumin/Creatinine Ratio 05/12/2025 024, 09/14/2022, 06/25/2020, Additional history exists DTap/Tdap Vaccines (2 - Td or Tdap) 08/27/2026 08/27/2016 Colonoscopy 09/03/2028 09/03/2023, 08/08, 08/22/2020, Additional history exists Colorectal Cancer Screening 09/03/2028 Lipid Panel 10/14/2028 10/14/2023, 11/2021, 04/24/2021, Additional history exists Zoster Vaccines Completed 06/23/2019, 06/07, 03/21/2017 RETIRED - COLONOSCOPY-EVERY 2 YRS AGES 18-100 Discontinued 09/03/2023, 09/03/2023, 08/22/2020, Additional history exists Influenza Vaccine (FLU shot) Completed 06/29/2024, 06/22/2023, 06/23/2022, Additional history exists HPV (Gardasil) Vaccine Aged [...] as of this encounter Visit Diagnoses Diagnosis Need for prophylactic vaccination and inoculation against influenza- Primary documented in this encounter Care Teams Slitter And Cutter Operator Relationship Specialty Start Date End Date Reed Leon MD [address] [place] [address] PCP - General Family Medicine 02/22/21 documented as of this encounter
--- OUTSIDE RECORDS SUMMARY | 2024-07-01 11:34 | External Medical Summary ---
Author Name Unknown Address Unknown Organization [id number]:[facility] [place] [facility] [address] [place] [id number] Laboratory Report Ordering Provider Test Date Status HUSSAIN,DURA 05/12/2024 14:11:23 Final Observation Date Value Abnormality Reference (Units ) Status HbA1C 05/12/2024 14:11:23 7.4 Above high normal 4. 0-5.6 (%) Final The use of HbA1c to monitor glycemic status is based on normal hemoglobin and HbA composition. This test should not be used in patients with abnormal hemoglobin that affects the half life of the red blood cell or the in vivo glycation rates. Glucose, estimated average 05/12/2024 14:11:23 166 Above high normal <126 (mg/dL) Chiki shea Performing Location [facility] [place] [address] [place] [id number]
--- OUTSIDE RECORDS SUMMARY | 2024-07-01 11:34 | External Medical Summary | Summary of Care ---
Author Name Unknown Organization [facility] Address [address] [place] [address] Phone [phone] Care Team Providers Care Skein Bleacher Name Role Phone Reed Leon MD Primary Care Provider [phone] Encounter Details Date Type Department Care Team (Late st Contact Info) Description 03/30/2024 Orders Only Outcomes Research Department [address] [place] [address] Olga Rivas CHRA MyCode Research Other*[id number] Allergies Active Allergy Reactions Criticality Noted Date Comments Ragweed 08/29/2016 Nasal congestion, watery, itchy eyes documented as of this encounter (statuses as of 03/30/2024) Medications Medication Sig Dispensed Refills Start Date End Date Status Glucose Blood In Vitro Strip Test as directed. livongo strips Active CPAP every night at bedtime. Active Clopidogrel Bisulfate 75 MG Oral Tablet [...] 12/09/2023 Active ALPRAZolam 1 MG Oral Tablet (xaNAX)Indications:A nxiety Take 1 Tablet (1 mg) by mouth in the morning and 1 Tablet (1 mg) at noon and 1 Tablet (1 mg) before bedtime. 30 Tablet 01/28/2024 Active metFORMIN HCl 1000 MG Oral Tablet (Glucophage) TAKE 1 TABLET BY MOUTH TWICE A DAY WITH BREAKFAST AND DINNER. 180 Tablet 1 02/03/2024 Active documented as of this encounter (statuses as of 03/30/2024) Active Problems Problem Noted Date Diagnosed Date Sigmoid diverticulosis 09/03/2023 Seasonal allergic rhinitis due to pollen 022 Obesity, Class I, BMI 30.0-34.9 (see actual BMI) 09/11/2021 Thrombocytopenia 04/24/2021 TAYLOR (obstructive sleep apnea) 02/22/2021 Overview: DME: [facility] ( Fax: ) ANNA (generalized anxiety disorder) 02/21/2021 History of TIA (transient ischemic attack) 02/21 HTN, goal below 130/80 08/27/2016 Type 2 diabetes mellitus wit h hemoglobin A1c goal of less than 8.0% 08/27/2016 documented as of this encounter (statuses as of 03/30/2024) Resolved Problems Problem Noted Date Diagnosed Date Resolved Date Aphasia 10/13/2018 12/19/2018 Mixed dyslipidemia 04/04/2018 1 Anxiety 08/27/2016 02/21/2021 documented as of this encounter (statuses as of 03/30/2024) Immunizations Name Administration Dates Next Due COVID-19 mRNA, LNP-s, No Pre serve, 2-Dose Series ([employer]) 01/19/2021,12/19/2020 COVID-19, LNP-s, No Preserve , Abelino-sucrose, [...] money to get more. Never true 04/03/2023 Childcare Answer Date Recorded Do you feel overwhelmed with taking care of a child, family member or friend? No 04/03/2023 Does your family need help f inding childcare? (Household - for ages 0-17 years) Not on file 04/03/2023 Clothing Answer Date Recorded Have you been unable to get clothing when it was really needed? No 04/03/2023 Is your family able to get c lothes or diapers when needed? (Household - for ages 0-17 years) Not on file 04/03/2023 Personal Safety Answer Date Recorded Do you feel unsafe or have concerns for your saf ety? No 04/03/2023 Do you have concerns for you r family's safety? (Household - for ages 0-17 years) Not on file 04/03/2023 Utilities Answer Date Recorded Do you have trouble paying y our heating, water, or electric bill? No 04/03/2023 Is your family able to pay t he heat, water, or electric bill? (Household - for ages 0-17 years) Not on file 04/03/2023 Does your family have access to good internet? (Household - for ages 0-17 years) Not on file 04/03/2023 Employment Status Answer Date Recorded Are you unemployed or without regular income? No 04/03/2023 Does the household have a re gular source of income? (Household - for ages 0-17 years) Not on file 04/03/2023 Social Connections Answer Date Recorded How often do you feel lonely or isolated from those around you? Sometimes 04/03/2023 Financial Resource Strain Answer Date R ecorded Do you have any trouble payi ng for your medications, or do you think you might in the future? No 04/03/2023 Does your family have troubl e paying for medicine? (Household - for ages 0-17 years) Not on file 04/03/2023 Transportation Needs Answer Date Record ed READ ONLY Do you have troubl e getting a ride to medical visits or work? Never True 04/03/2023 Does your family have a hard time getting a ride to doctors visits? (Household - for ages 0-17 years) Not on file 04/03/2023 Has lack of transportation k ept you from medical appointments, meetings, work, or from getting things needed for daily living? Check all that apply. (Adult - for ages 18 years and over) Not on file 04/03/2023 Do you (or your family) have trouble finding or paying for a ride (transportation)? (Household - for ages 0-17 years) Not on file 04/03/2023 Housing Stability Answer Date Recorded Do you currently live in a s helter or have no steady place to sleep at night? No 04/03/2023 READ ONLY Do you think you a re at risk of becoming homeless? No 04/03/2023 Does your family worry about paying for your home or becoming homeless? (Household - for ages 0-17 years) Not on file 0 04/03/2023 Are you homeless or worried that you might be in the future? (Adult - for ages 18 years and over) Not on file Are you (or your family) yogesh eless or worried that you might be in the future? (Household - for ages 0-17 years) Not on file Food Insecurity Answer Date Recorded Do you need food for this week? No 04/03/2023 Are you able to get enough f ood for your family? (Household - for ages 0-17 years) Not on file 04/03/2023 Does your family need food t his week? (Household - for ages 0-17 years) Not on file 04/03/2023 Do you always have enough fo od for your family? (Household - for ages 0-17 years) Not on file 04/03/2023 Sex and Gender Information Value Date [...] 04/17/2024 11:30 AM EDT Office Visit Otolaryngology [facility] [address] [place] [address] Jayjay Sow DO [address] [place] [address] 04/28/2024 1:20 PM EDT Office Visit Family Practice [facility] [address] [place] [address] Reed Leon MD [address] [place] [address] Scheduled Orders Name Type Priority Associated Diagnoses Orde r Schedule MYCODE SUBSEQUENT ADULT Lab Routine MyCode Research Other*[id number] Every 6 Months for 2 Occurrences starting 03/30/2024 until 04/19/2025 Scheduled Procedures Name Priority Associated Diagnoses Date/Ti me COLONOSCOPY FLEXIBLE PROXIMA L DIAGNOSTIC Recall History of colon polyps Abnormal colonoscopy Health Maintenance Due Date Last Done Comments Cologuard 1999 Fecal Occult Blood Test 1999 Sigmoidoscopy 1999 Depression Screening 06/25/2021 06/25/2020 Pneumococcal Vaccine: 65+ Years (3 of 3 - PPSV23 or PCV20) 08/27/2021 06/25/2020, 08/27/2016 COVID-19 Vaccine ( - season) 2023 06/29/2022, 02/13/2022, 07/24/2021, Additional history [...] Cancer Screening 09/03/2028 Lipid Panel 10/14/2028 10/14/2023, 06/0 11/2021, 04/24/2021, [...] as of this encounter Visit Diagnoses Diagnosis MyCode Research Other*[id number] documented in this encounter Care Teams Skein Bleacher Relationship Specialty Start Date End Date Reed Leon MD [address] [facility] [place] [address] PCP - General Family Medicine 02/22/21 documented as of this encounter
--- OUTSIDE RECORDS SUMMARY | 2024-07-01 11:34 | External Medical Summary | Summary of Care ---
Author Name Unknown Organization [facility] Address [address] [place] [address] Phone [phone] Care Team Providers Care Rn Correctional Name Role Phone Reed Leon MD Primary Care Provider [phone] Reason for Visit * Reason Comments Follow Up Pt here for 6 month follow up, c/o slight increase in joint pain in hands and shoulders Encounter Details Date Type Department Care Team (Late st Contact Info) Description 05/05/2024 6:00 PM EDT Office Visit Family Practice [facility] [address] [place] [address] Reed Leon MD [address] [place] [address] Type 2 diabetes mellitus with hemoglobin A1c goal of less than 8.0% ([facility])*; TAYLOR (obstructive sleep apnea); HTN, goal below 130/80; Sigmoid diverticulosis; Thrombocytopenia ([facility]); Obesity, Class I, BMI 30.0-34.9 (see actual BMI); History of TIA (transient ischemic attack); ANNA (generalized anxiety disorder) Allergies Active Allergy Reactions Criticality Noted Date Comments Ragweed 08/29/2016 Nasal congestion, watery, itchy eyes documented as of this encounter (statuses as of 05/05/2024) Medications Medication Sig Dispensed Refills Start Date [...] as of this encounter (statuses as of 05/05/2024) Active Problems Problem Noted Date Diagnosed Date Sigmoid diverticulosis 09/03/2023 Seasonal allergic rhinitis due to pollen 022 Obesity, Class I, BMI 30.0-34.9 (see actual BMI) 09/11/2021 Thrombocytopenia 04/24/2021 TAYLOR (obstructive sleep apnea) 02/22/2021 Overview: DME: [facility] ( Fax: ) ANNA (generalized anxiety disorder) 02/21/2021 History of TIA (transient ischemic attack) 02/21 HTN, goal below 130/80 08/27/2016 Type 2 diabetes mellitus wit h hemoglobin A1c goal of less than 8.0% 08/27/2016 documented as of this encounter (statuses as of 05/05/2024) Resolved Problems Problem Noted Date Diagnosed Date Resolved Date Aphasia 10/13/2018 12/19/2018 Mixed dyslipidemia 04/04/2018 1 Anxiety 08/27/2016 02/21/2021 documented as of this encounter (statuses as of 05/05/2024) Immunizations Name Administration Dates Next Due COVID-19 [...] No 05/05/2024 Does the household have a [facility] source of income? (Household - for ages [...] Sign Reading Time Taken Comments Blood Pressure 144/84 05/05/2024 5:43 PM EDT Pulse 72 05/05/2024 5:43 PM EDT Temperature 37.1 C (98.7 F) 05/05/2024 5:43 PM ED T Respiratory Rate 18 05/05/2024 5:43 PM EDT Oxygen Saturation - - Inhaled Oxygen Concentration - - Weight 111.1 kg (245 lb) 05/05/2024 5:43 PM EDT Height 190.5 cm (6' 3") 05/05/2024 5:43 PM EDT Body Mass Index 30.62 05/05/2024 5:43 PM EDT documented in this encounter Progress Notes * Reed Leon MD - 05/05/2024 6:12 PM EDT SUBJECTIVE: Rocky Strange is a 68 year old male. Chief Complaint Patient presents with Follow Up Pt here for 6 month follow up, c/o slight increase in joint pain in hands and shoulders HPI: Routine follow up. Has some increasing joint pain in his fingers and hands when reaching for thingsbut otherwise has been feeling well. Health maintenance up to date. Patient Active Problem List Diagnosis HTN, goal below 130/80 Type 2 diabetes mellitus with hemoglobin A1c goal of less than 8.0% (HCC) ANNA (generalized anxiety disorder) History of TIA (transient ischemic attack) TAYLOR (obstructive sleep apnea) Thrombocytopenia (HCC) Obesity, Class I, BMI 30.0-34.9 (see actual BMI) Seasonal allergic rhinitis due to pollen Sigmoid diverticulosis Current Outpatient Medications Medication Sig Dispense Refill CPAP every night at bedtime. ALPRAZolam 1 MG Oral Tablet (xaNAX) Take 1 Tablet (1 mg) by mouth in the morning and 1 Tablet (1 mg) at noon and 1 Tablet (1 mg) before bedtime. 30 Tablet 0 Clopidogrel Bisulfate 75 MG Oral Tablet (pLAVix) TAKE 1 TABLET BY MOUTH IN THE MORNING. 90 Tablet 3 Atorvastatin Calcium 40 MG Oral Tablet (Lipitor) TAKE ONE TABLET BY MOUTH IN THE MORNING 90 Tablet 3 Valsartan-hydroCHLOROthiazide 160-12.5 MG Oral Tablet (Diovan Hct) TAKE TWO TABLETS BY MOUTH ONCE DAILY 180 Tablet 3 Escitalopram Oxalate 10 MG Oral Tablet (Lexapro) Take 1 Tablet by mouth in the morning. 90 Tablet 3 metFORMIN HCl 1000 MG Oral Tablet (Glucophage) TAKE 1 TABLET BY MOUTH TWICE A DAY WITH BREAKFAST AND DINNER. 180 Tablet 1 Diclofenac Sodium 1 % External Gel (Voltaren) Apply 2 g topically to affected area in the morning and 2 g before bedtime. Apply to hands. 300 g 2 Glucose Blood In Vitro Strip Test as directed. livongo strips No current facility-administered medications for this visit. Allergy: Review of patient's allergies indicates: Allergen Reactions Ragweed Nasal congestion, watery, itchy eyes OBJECTIVE: BP 144/84 | Pulse 72 | Temp 37.1 C (98.7 F) (Tympanic) | Resp 18 | Ht 1.905 m (6' 3") | Wt 111.1 kg (245 lb) | BMI 30.62 kg/m | BSA 2.42 m General: alert, healthy, and no distress Head: Normocephalic, No masses, lesions, tenderness or abnormalities Neck: supple, no adenopathy, no bruits, thyroid normal size, non-tender, without nodularity Lungs: chest symmetric with normal AP diameter, no chest deformities noted, no chest wall tenderness, lungs clear to auscultation Heart: regular rate & rhythm, no murmur, and no gallops Extremities: less than 2 second capillary refill, no joint deformities, effusion, or inflammation Neuro Exam: alert & oriented x 3 with fluent speech, no focal motor/sensory deficits, gait normal, reflexes normal and symmetric Skin: skin color, texture, turgor are normal, no rashes or significant lesions ASSESSMENT AND PLAN: (E11.9) Type 2 diabetes mellitus with hemoglobin A1c goal of less than 8.0% (HCC) (primary encounter diagnosis) Plan: check A1c; continue rx (G47.33) TAYLOR (obstructive sleep apnea) Plan: compliant with CPAP (I10) HTN, goal below 130/80 Plan: stable (K57.30) Sigmoid diverticulosis Plan: quiescent (D69.6) Thrombocytopenia (HCC) Plan: stable (E66.9) Obesity, Class I, BMI 30.0-34.9 (see actual BMI) Plan: diet/exercise (Z86.73) History of TIA (transient ischemic attack) Plan: continue asa (F41.1) ANNA (generalized anxiety disorder) Plan: stable Follow up in 6 month(s). No other complaints were offered at this time. Reed Leon MD documented in this encounter Nursing Notes * Markus JessicaCHANDLER - 05/05/2024 5:43 PM EDT The patient has been properly identified by confirmation of name and date of . Chief Complaint Patient presents with Follow Up Pt here for 6 month follow up, c/o slight increase in joint pain in hands and shoulders documented in this encounter Plan of Treatment Upcoming Encounters Date Type Department Care Team (Late st Contact Info) Description 07/24/2024 11:30 AM EDT Office Visit Otolaryngology [facility] [address] [place] [address] Jayjay Sow DO [address] [place] [address] Scheduled Procedures Name Priority Associated Diagnoses Date/Ti me COLONOSCOPY FLEXIBLE PROXIMA L DIAGNOSTIC Recall History of colon polyps Abnormal colonoscopy Health Maintenance Due Date Last Done Comments Cologuard 1999 Fecal Occult Blood Test 1999 Sigmoidoscopy 1999 Pneumococcal Vaccine: 65+ Years (3 of 3 - PPSV23 or PCV20) 08/27/2021 06/25/2020, 08/27/2016 COVID-19 Vaccine ( season) 2023 06/29/2022, 02/13/2022, 07/24/2021, Additional history exists Albumin/Creatinine Ratio 09/14/202309/14/2 022, 06/25/2020, 12/18/2017, Additional history exists HbA1c [...] 10/14/2023, 06/0 11/2021, 04/24/2021, Additional history exists Hepatitis C [...] as of this encounter Visit Diagnoses Diagnosis Type 2 diabetes mellitus with hemoglobin A1c goal of less than 8.0% (HCC)- Primary TAYLOR (obstructive sleep apnea) Obstructive sleep apnea (adult) (pediatric) HTN, goal below 130/80 Unspecified essential hypertension Sigmoid diverticulosis Diverticulosis of colon (without mention of hemorrhage) Thrombocytopenia (HCC) Thrombocytopenia, unspecified Obesity, Class I, BMI 30.0-34.9 (see actual BMI) Obesity, unspecified History of TIA (transient ischemic attack) Transient ischemic attack (TIA), and cerebral infarction without residual deficits ANNA (generalized anxiety disorder) Generalized anxiety disorder documented in this encounter Care Teams Rn Correctional Relationship Specialty Start Date End Date Reed Leon MD [address] [place] [address] PCP - General Family Medicine 02/22/21 documented as of this encounter
--- OUTSIDE RECORDS SUMMARY | 2024-07-01 11:34 | External Medical Summary | Summary of Care ---
Author Name Unknown Organization [facility] Address [address] [place] [address] Phone [phone] Care Team Providers Care Assistant Professor Of Radiology Name Role Phone Reed Leon MD Primary Care Provider [phone] Reason for Visit * Reason Comments Follow Up Cerumen removal Encounter Details Date Type Department Care Team (Late st Contact Info) Description 04/17/2024 11:30 AM EDT Office Visit [facility] [address] [facility] [address] Jayjay Sow DO [address] [facility] [place] [address] Bilateral impacted cerumen [H61.23]* Allergies Active Allergy Reactions Criticality Noted Date Comments Ragweed 08/29/2016 Nasal congestion, watery, itchy eyes documented as of this encounter (statuses as of 04/17/2024) Medications Medication Sig Dispensed Refills Start Date [...] as of this encounter (statuses as of 04/17/2024) Active Problems Problem Noted Date Diagnosed Date Sigmoid diverticulosis 09/03/2023 Seasonal allergic rhinitis due to pollen 022 Obesity, Class I, BMI 30.0-34.9 (see actual BMI) 09/11/2021 Thrombocytopenia 04/24/2021 TAYLOR (obstructive sleep apnea) 02/22/2021 Overview: DME: [facility] ( Fax: ) ANNA (generalized anxiety disorder) 02/21/2021 History of TIA (transient ischemic attack) 02/21 HTN, goal below 130/80 08/27/2016 Type 2 diabetes mellitus wit h hemoglobin A1c goal of less than 8.0% 08/27/2016 documented as of this encounter (statuses as of 04/17/2024) Resolved Problems Problem Noted Date Diagnosed Date Resolved Date Aphasia 10/13/2018 12/19/2018 Mixed dyslipidemia 04/04/2018 1 Anxiety 08/27/2016 02/21/2021 documented as of this encounter (statuses as of 04/17/2024) Immunizations Name Administration Dates Next Due COVID-19 mRNA, LNP-s, No Pre serve, 2-Dose Series ([place]) 01/19/2021,12/19/2020 COVID-19, LNP-s, No Preserve , Abelino-sucrose, Ages 12+ ([place]) 02/13/2022,07/24/2021 Covid-19, Mrna, Lnp-s, Pf, B ivalent, [...] y our heating, water, or electric bill? (Adult - for ages 18 years and over) Not on file 04/07/2024 Is your family able to pay t he heat, water, or electric bill? (Household - for ages 0-17 years) Not on file 04/07/2024 Does your family have access to good internet? (Household - for ages 0-17 years) Not on file 04/07/2024 Employment Status Answer Date Recorded Are you unemployed or without regular income? No 04/03/2023 Does the household have a re gular source of income? (Household - for ages 0-17 years) Not on file 04/03/2023 Social Connections Answer Date Recorded How often do you feel lonely or isolated from those around you? (Adult - for ages 18 years and over) Not on file 04/07/2024 Financial Resource Strain Answer Date R ecorded [...] Pressure - - Pulse - - Temperature - - Respiratory Rate - - Oxygen Saturation - - Inhaled Oxygen Concentration - - Weight 112.3 kg (247 lb 9.6 oz) 024 11:38 AM EDT Height 190.5 cm (6' 3") 04/17/2024 11:3 8 AM EDT Body Mass Index 30.95 04/17/2024 11:38 AM EDT documented in this encounter Progress Notes * Jayjay Sow, - 04/17/2024 11:59 AM EDT Otolaryngology Head and Neck Surgery 04/17/2024 Procedure: Cerumen removal Attention directed to the [...] above Follow-up 3 months Jayjay Sow DO, FACS [facility] [place], [place] 04/17/2024 11:59 AM documented in this encounter Nursing Notes * Sivan Dickson LPN - 04/17/2024 11:45 AM EDT Chief Complaint Patient presents with Follow Up Cerumen removal Patient returns today for routine cerumen removal. Pt doing well with no concerns today. Plan: Cerumen removed as above Follow-up 3 months Jayjay Sow DO, TERESE [facility]aser Otolaryngology [facility] [place] 01/17/2024 10:22 AM documented in this encounter Plan of Treatment Upcoming Encounters Date Type Department Care Team (Late st Contact Info) Description 04/28/2024 1:20 PM EDT Office Visit Family Practice [facility] [address] [facility] [place] [address] Reed Leon MD [address] [facility] [place] [address] 07/24/2024 11:30 AM EDT Office Visit Otolaryngology [facility] [address] [place] [address] Jayjay Sow DO [address] [place] [address] Scheduled Procedures Name Priority Associated Diagnoses Date/Ti [...] 12/18/2017, Additional history exists HbA1c 04/20/2024 10/21/2023, 0602/2023, 09/14/2022, Additional history exists Influenza Vaccine (FLU [...] Cancer Screening 09/03/2028 Lipid Panel 10/14/2028 10/14/2023, 0611/2021, 04/24/2021, Additional history exists Zoster Vaccines Completed [...] this encounter Visit Diagnoses Diagnosis Bilateral impacted cerumen [H61.23]- Primary Impacted cerumen documented in this encounter Care Teams Assistant Professor Of Radiology Relationship Specialty Start Date End Date Reed Leon MD [address] [place] [address] PCP - General Family Medicine 02/22/21 documented as of this encounter
--- OUTSIDE RECORDS SUMMARY | 2024-07-01 11:34 | External Medical Summary | Summary of Care ---
Author Name Unknown Organization [facility] Address [address] [place] [address] Phone [phone] Care Team Providers Care Caltrans Equipment Operator Name Role Phone Татьяна Perez MD Primary Care Provider [phone] Reason for Visit * Reason Comments Medication Refill Encounter Details Date Type Department Care Team (Late st Contact Info) Description 01/27/2024 Refill Family Practice [facility] [address] [place] [address] Татьяна Perez MD [address] [place] [address] Anxiety Allergies Active Allergy Reactions Criticality Noted Date Comments Ragweed 08/29/2016 Nasal congestion, watery, itchy eyes documented as of this encounter (statuses as of 01/28/2024) Medications Medication Sig Dispensed Refills Start Date [...] before bedtime. 30 Tablet 0 01/28/2024 Active ALPRAZolam 1 MG Oral Tablet (xaNAX)Indications :Anxiety Take 1 Tablet (1 mg) by mouth in the morning and 1 Tablet (1 mg) at noon and 1 Tablet (1 mg) before bedtime. 30 Tablet 0 09/20/2022 4 Discontinue d(Refill) documented as of this encounter (statuses as of 01/28/2024) Active Problems Problem Noted Date Diagnosed Date Sigmoid diverticulosis 09/03/2023 Seasonal allergic rhinitis due to pollen 022 Obesity, Class I, BMI 30.0-34.9 (see actual BMI) 09/11/2021 Thrombocytopenia 04/24/2021 TAYLOR (obstructive sleep apnea) 02/22/2021 Overview: DME: [facility] ( Fax: ) ANNA (generalized anxiety disorder) 02/21/2021 History of TIA (transient ischemic attack) 02/21 HTN, goal below 130/80 08/27/2016 Type 2 diabetes mellitus wit h hemoglobin A1c goal of less than 8.0% 08/27/2016 documented as of this encounter (statuses as of 01/28/2024) Resolved Problems Problem Noted Date Diagnosed Date Resolved Date Aphasia 10/13/2018 12/19/2018 Mixed dyslipidemia 04/04/2018 1 Anxiety 08/27/2016 02/21/2021 documented as of this encounter (statuses as of 01/28/2024) Immunizations Name Administration Dates Next Due COVID-19 [...] encounter Miscellaneous Notes * Telephone Encounter - Татьяна Perez MD - 01/28/2024 6:02 PM EDTSigned Prescriptions: Disp Refills ALPRAZolam 1 MG Oral Tablet (xaNAX) 30 Tab*0 Sig: Take 1 Tablet (1 mg) by mouth in the morning and 1 Tablet (1 mg) at noon and 1 Tablet (1 mg) before bedtime. Authorizing Provider: ТАТЬЯНА PEREZ * Telephone Encounter - Benny Nice, [facility] - 01/28/2024 3:19 PM EDTPending Prescriptions: Disp Refills ALPRAZolam 1 MG Oral Tablet (xaNAX) 30 Tab*0 Sig: Take 1 Tablet (1 mg) by mouth in the morning and 1 Tablet (1 mg) at noon and 1 Tablet (1 mg) before bedtime. * [facility] - [facility] 3[facility]17 PM EDT I have reviewed the patients controlled substance dispensing history in the Prescription Drug Monitoring Program in compliance with the [facility] regulations before prescribing a controlled substance. PDMP checked on 01/28/2024. Pending Prescriptions: Disp Refills ALPRAZolam 1 MG Oral Tablet (xaNAX) 30 Tab*0 Sig: Take 1 Tablet (1 mg) by mouth in the morning and 1 Tablet (1 mg) at noon and 1 Tablet (1 mg) before bedtime. Last Visit: 10/21/2023 (in office), 03/15/2020 (telemedicine) Next Visit: 04/28/2024 Date medication was last filled: 09/20/22 Date medication is due for refill: 09/29/22 Pharmacy: [facility] Is this request for a controlled substance? Yes and Urine Drug Screen Not completed Toxicology results: No results found for this or any previous visit. Please approve if appropriate. Thank You, Benny Gaytan [facility] Clinical Pharmacist [facility] ([facility]PS) (formerly Telepharmacy) 01/28/2024, 3:17 PM documented in this encounter Plan of Treatment Upcoming Encounters Date Type Department Care Team (Late st Contact Info) Description 04/17/2024 11:30 AM EDT Office Visit Otolaryngology [facility] [address] [place] [address] Jayjay Sow DO [address] [place] [address] 04/28/2024 1:20 PM EDT Office Visit Family Practice [facility] [address] [place] [address] Татьяна Perez MD [address] [place] [address] Scheduled Procedures Name Priority Associated Diagnoses Date/Ti [...] 09/14/2022, Additional history exists B-12 10/21/2024 10/21/2023, 120 [...] Additional history exists Lipid Panel 10/14/2028 10/14/2023, 060 11/2021, 04/24/2021, [...] as of this encounter Visit Diagnoses Diagnosis Anxiety Anxiety state, unspecified documented in this encounter Care Teams Caltrans Equipment Operator Relationship Specialty Start Date End Date Татьяна Perez MD [address] [place] [address] PCP - General Family Medicine 02/22/21 documented as of this encounter
--- OUTSIDE RECORDS SUMMARY | 2024-07-01 11:34 | External Medical Summary | Summary of Care ---
Author Name Unknown Organization [facility] Address [address] [place] [address] Phone [phone] Care Team Providers Care Heel Seat Fitter Machine Name Role Phone Reed Leon MD Primary Care Provider [phone] Reason for Visit * Reason Comments Outpatient Testing Encounter Details Date Type Department Care Team (Late st Contact Info) Description 05/12/2024 2:10 PM EDT Laboratory Laboratory, [facility] [address] [place] [address] [facility] [address] [place] [address] [employer] Other*[id number]; Encounter for long-term (current) use of medications; Type 2 diabetes mellitus with hemoglobin A1c goal of less than 8.0% ([facility]); HTN, goal below 140/90 Allergies Active Allergy Reactions Criticality Noted Date Comments Ragweed 08/29/2016 Nasal congestion, watery, itchy eyes documented as of this encounter (statuses as of 05/12/2024) Medications Medication Sig Dispensed Refills Start Date [...] as of this encounter (statuses as of 05/12/2024) Active Problems Problem Noted Date Diagnosed Date Sigmoid diverticulosis 09/03/2023 Seasonal allergic rhinitis due to pollen 022 Obesity, Class I, BMI 30.0-34.9 (see actual BMI) 09/11/2021 Thrombocytopenia 04/24/2021 TAYLOR (obstructive sleep apnea) 02/22/2021 Overview: DME: [facility] ( Fax: ) ANNA (generalized anxiety disorder) 02/21/2021 History of TIA (transient ischemic attack) 02/21 HTN, goal below 130/80 08/27/2016 Type 2 diabetes mellitus wit h hemoglobin A1c goal of less than 8.0% 08/27/2016 documented as of this encounter (statuses as of 05/12/2024) Resolved Problems Problem Noted Date Diagnosed Date Resolved Date Aphasia 10/13/2018 12/19/2018 Mixed dyslipidemia 04/04/2018 Anxiety 08/27/2016 02/21/2021 documented as of this encounter (statuses as of 05/12/2024) Immunizations Name Administration Dates Next Due COVID-19 mRNA, LNP-s, No Pre serve, 2-Dose Series (Wondershake) 01/19/2021,12/19/2020 COVID-19, LNP-s, No Preserve , Abelino-sucrose, [...] No 05/05/2024 Does the household have a [facility] source of income? (Household - for [...] 07/24/2024 11:30 AM EDT Office Visit Otolaryngology [facility] [address] [place] [address] Jayjay Sow DO [address] [place] [address] 10/21/2024 11:40 AM EST Office Visit Family Practice [facility] [address] [place] [address] Reed Loen MD [address] [place] [address] Pending Results Name Type Priority Associated Diagnoses Date /Time MYCODE SUBSEQUENT ADULT Lab Routine [employer] Other*[id number] 05/12/2024 2:11 PM EDT HEMOGLOBIN A1C Lab Routine Encounter for long-term (current) use of medications Type 2 diabetes mellitus with hemoglobin A1c goal of less than 8.0% ([facility]) 05/12/2024 2:11 PM EDT MYCODE SST1 Lab Routine [employer] Other*[id number] 05/12/2024 2:11 PM EDT MYCODE SST2 Lab Routine [employer] Other*[id number] 05/12/2024 2:11 PM EDT ALBUMIN / CREATININE RATIO, URINE Lab Routine HTN, goal below 140/90 05/12/2024 2:14 PM EDT Scheduled Procedures Name Priority Associated Diagnoses Date/Ti [...] 07/08/2021, Additional history exists B-12 10/21/2024 10/21/2023, 12/06/2022, 05/01/2021, Additional history exists Diabetic Foot Exam [...] Not on filedocumented as of this encounter Procedures Procedure Name Priority Date/Time Associated Diagnosis Comments CBC Routine 05/12/2024 2:11 PM EDT Encounter for long-term (current) use of medications documented in this encounter Results * (ABNORMAL) CBC (05/12/2024 2:11 PM EDT) WBC 5.91 4.00 - 10.80 K/uL 05/12/2024 2:22 PM EDT [facility] RBC 4.67 4.50 - 5.25 M/uL 05/12/2024 2:22 PM EDT [facility] [place] [facility] HGB 13.9(L) 14.0 - 16.8 g/dL 05/12/2024 2:22 PM EDT [facility] [place] [facility] HCT 40.9 40.0 - 48.4 % 05/12/2024 2:22 PM EDT [facility] [place] MCV 87.6 82.0 - 99.5 fL 05/12/2024 2:22 PM EDT [facility] [place] MCH 29.8 27.0 - 34.0 pg 05/12/2024 2:22 PM EDT [facility] [place] [facility] MCHC 34.0 32.0 - 36.0 g/dL 05/12/2024 2:22 PM EDT [facility] [place] [facility] RDW 14.4 11.5 - 15.5 % 05/12/2024 2:22 PM EDT [facility] [place] [facility] PLT 135(L) 140 - 400 K/uL 05/12/2024 2:22 PM EDT [facility] [place] [facility] MPV 12.1 6.6 - 11.1 fL 05/12/2024 2:22 PM EDT [facility] [place] Blood Venous blood specimen / Unknown Venipuncture / Unknown 05/12/2024 2:11 PM EDT 05/12/2024 2:11 PM EDT Lamar Yasemin [facility] LAB BLOOD ORDERABLES [facility] [place] [facility] [address] [place] [address] documented in this encounter Visit Diagnoses Diagnosis [employer] Other*[id number] Encounter for long-term (current) use of medications Encounter for long-term (current) use of other medications Type 2 diabetes mellitus with hemoglobin A1c goal of less than 8.0% (HCC) HTN, goal below 140/90 Unspecified essential hypertension documented in this encounter Care Teams Heel Seat Fitter Machine Relationship Specialty Start Date End Date Reed Leon MD [address] [place] [address] PCP - General Family Medicine 02/22/21 documented as of this encounter
--- OUTSIDE RECORDS SUMMARY | 2024-07-01 11:34 | External Medical Summary ---
Author Name Unknown Address Unknown Organization K01:[facility] [address] [place] [address] Laboratory Report Ordering Provider Test Date Status LALY ANGUIANO 05/12/2024 14:11:23 Final Observation Date Value Abnormality Reference (Units ) Status MYCODE SPECIMEN-SST 05/12/2024 14:11:23 Freezing of extracted DNA, whole blood and/or serum. Final Performing Location [facility] - [address] [place] [address]
--- OUTSIDE RECORDS SUMMARY | 2024-07-01 11:34 | External Medical Summary ---
Author Name Unknown Address Unknown Organization K01:[facility] - [address] [place] [address] Laboratory Report Ordering Provider Test Date Status HUSSAIN,DURA 05/12/2024 14:14:49 Final Normal: <30 mg/g creatinine< br/>High: 30-300 mg/g creatinine
Very High: >300 mg/g creatinine
Nephrotic: >2200 mg/g creatinine Observation Date Value Abnormality Reference (Units ) Status Albumin, Urine 05/12/2024 14:14:49 2.58 (mg/dL) Final Creatinine, Urine 05/12/2024 14:14:49 157 (mg/dL) Final Albumin/Creatinine [Mass Ratio] in Urine 05/12/2024 14:14:49 16 <30 (mg/g Creat) Final Performing Location [facility] - [address] [place] [address]
[2024-07-01] MEDS: ASPIRIN 81 MG ECTAB PO SCH (12:11)
[2024-07-01] MEDS: CLOPIDOGREL BISULFATE 75 MG TAB PO SCH (12:12)
--- NOTE | 2024-07-01 12:46 | Pharmacy Report ---
- Date of Service July 01, 2024 - Pharmacy CVA/TIA Medication Review Medications to Prevent Stroke handout has been added to the patients discharge packet. Antiplatelet(s) * Aspirin 81 mg PO daily * Clopidogrel 75 mg PO daily * Dual therapy for 3 weeks. Cholesterol * High intensity statin: atorvastatin 80 mg daily DVT Prophylaxis * SCD knee Therapeutic Anticoagulation * No history of Afib/Aflutter noted Type 2 Diabetes * Patient has T2DM, but per Dr. Birmingham, a diabetes medication with proven CVD benefit will be deferred to their outpatient provider due to familiarity with risks/benefits of such therapies. "Medications to prevent stroke" handout has already been added to the patient's discharge packet, which instructs the patient to follow up with their outpatient provider to evaluate which diabetes medication with proven CVD benefit is best for them
--- NOTE | 2024-07-01 15:05 | Discharge Summary ---
Date of Service July 01, 2024 Admission HPI Per Admitting Provider History obtained from patient and records. Medical history significant for hypertension, hyperlipidemia, TIA, PFO, TAYLOR on CPAP, DM2 on oral medications, chronic thrombocytopenia, anxiety disorder. Last confinement September 2018 for TIA symptoms presenting as transient expressive aphasia associated with headache symptoms. No CVA on MRI. Patient discharged on dual antiplatelet Rx. Neurologist later discontinued aspirin and instructed patient to continue Plavix for lifetime. Patient was about to have dinner with mike when he had trouble getting words out again associated with headache symptoms. No chest pain, no SOB. No arm or leg weakness. Compliant with home medications. Stroke alert called upon arrival at the ER. Thrombolytic therapy not recommended given improvement of symptoms. Neurologic symptoms currently resolved. 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 Admission Exam Per Admitting Provider GENERAL: Comfortable, pleasant, obese, no respiratory distress SKIN: Normal color, warm HEENT: [place] palpebral conjunctivae, no ptosis, moist buccal mucosa NECK : Supple, no tenderness CHEST : CTA, no tenderness HEART : RRR, no obvious murmurs ABDOMEN: Some distention, nontender EXTREMITIES : No LE swelling/tenderness, no other conspicuous deformities noted NEUROLOGIC : Coherent, no facial asymmetry, no other gross focality Principal Diagnosis Transient ischemic attack Discharge Exam Constitutional: WD/WN, vitals as above, NAD, sitting up in bed, pleasant, conversing easily Respiratory: normal respiratory effort, lungs clear to auscultation, no wheeze, rales, rhonchi. Normal insp/exp effort, no accessory muscle use Cardiovascular: RRR, no murmur, no edema Vessels: no JVD or carotid bruit Chest: normal inspection of chest Abdomen: normal bowel sounds, soft, nontender, no hepatosplenomegaly Musculoskeletal: no cyanosis or clubbing, extremities motor strength 5/5 Skin: no rashes, warm and dry normal turgor Neurologic: PERRL, EOMI, accommodation nl, no face palsy, no dysarthria CN's II- XI intact bilaterally and moves all extremities Psychiatric: A+Ox3, euthymic affect Discharge Data Allergies Allergy/AdvReac Type Severity Reaction Status Date / Time ragweed pollen Allergy Watery Eye Unverified 09/17/18 15:38 Consultations 06/30/24 21:20 ED Decision to Admit Stat 06/30/24 22:19 Consult Neurology Routine Ordered Studies 06/30/24 20:11 CT angio head w con Stat CT angio neck with con Stat CT head/brain wo con Stat 07/01/24 00:30 MR brain wo con Urgent Hospital Course (1) TIA (transient ischemic attack): Plan Patient presented with episode of word finding difficulty at home. It resolved on the way to the hospital. On presentation to the hospital he was hypertensive, other vital signs were stable. Stroke alert was called. Patient underwent CT head, CTA head and neck which did not show any acute finding. Patient was admitted to the hospital for further monitoring. MRI of the brain did not show any acute stroke. Neurology was consulted for comanagement; recommend aspirin and Plavix for 3 weeks. Patient was also recommended to obtain P2Y12 level check on effectiveness of Plavix; the test was not available at the hospital. Discussion was done with neurology over [employer] text; recommended to continue aspirin and Plavix for the time being and obtaining P2 Y12 level as outpatient and following up with neurology to determine long-term antiplatelet care. This was discussed with patient and he was agreeable with the plan. On his CT head; patient was also found to have left mastoid effusion. Clinically, patient did not have pain, discomfort or fever. Patient to follow-up with ENT as outpatient. Please note the above document was generated using voice recognition software. It may contain grammatical, syntax or spelling errors. Any formal questions or concerns about the content, text or information contained within the body of this dictation should be directly addressed to the provider for clarification Total Time Total Time Spent Total Time Spent (In Minutes): 45 Total Time Includes: Examination of the Patient, Discharge Planning, Medication Reconciliation, Communication With Other Providers and Other Discharge Plan Discharge Items Patient Disposition: Home - Self-Care Reason For Visit: TIA Discharge Diagnosis: TIA ( Transient Ischemic Attack) Activity: Resume your previous activity Non-emergency contact: Primary Care Provider Call non-emergency contact if: you have any medication questions and your symptoms worsen Follow-up/Referrals: Jayjay Sow DO [Physician] - (Date & Time 07/24/2024 11:30 AM Provider Jayjay Sow DO Department Otolaryngology [facility] ) Vicky Bennett MD [Physician] - (Date & Time 07/20/2024 8:00 AM Provider Vicky Bennett MD Department Neurology [facility] ) Reed Leon MD [Primary Care Provider] - (Date & Time 07/06/2024 3:20 PM Provider Reed Leon MD Department Family Practice [facility] ) Diet: Regular Addtl Attending Provider Instructions: You were admitted to the hospital due to concern for transient ischemic attack. You were evaluated by neurologist during the hospitalization. They recommend following medication changes Take aspirin and Plavix together for 21 days. He will need to have " P2y12" test to evaluate for effectiveness of Plavix. You have a follow-up set up with your primary care doctor so that the test can be coordinated. The test was not available in the hospital. The CT scan and MRI brain showed left-sided mastoid effusion. You need to follow-up with ENT to be evaluated further as we discussed. If you start to experience fever, chills, ear pain; you need to seek immediate medical atte ntion. Pending Studies at Discharge: No Stand-Alone Forms: My [facility], Smoking Cessation, Medications to Prevent Stroke Medications and DC Order Prescriptions: New aspirin 81 mg Tablet,Delayed Release (Dr/Ec) 81 mg PO DAILY 20 Days Qty: 20 0RF Continued atorvastatin 40 mg tablet 40 mg PO QAM alprazolam [Xanax] 1 mg Tablet 1 mg PO TID PRN (Reason: Anxiety) valsartan-hydrochlorothiazide 160-12.5 mg tablet 1 tab PO BID escitalopram oxalate 10 mg tablet 10 mg PO QAM metformin 1,000 mg Tablet 1,000 mg PO BID clopidogrel [Plavix] 75 mg tablet 75 mg PO DAILY Qty: 30 0RF magnesium oxide 400 mg PO DAILY Admission Data Admit Date/Time: 06/30/24 22:17 Attending Provider: Juancho Birmingham Admit Provider: Stanley Pike Primary Care Provider: Reed Leon Other Providers: Stanley Pike; Vicky Aragon; Nikunj Johnson; Vicky Bennett; Reji De Leon; Laron Melissa; Aayush Viveros; Reed Sutherland; Loan Preston; Martin Daniel; Adonis Perdue; Mehran Head; Nakul Isbell; Mariam Whitfield; Camryn Mehta; Reed Garcia
[2024-07-01 16:05] VITALS: TEMP 98.2
[2024-07-01] MEDS ORDERED: STROKE PATIENT DISCHARGE STA (17:55)
[2024-07-01 18:02] VITALS: BP 156/83; PULSE 70
--- NOTE | 2024-07-01 22:37 | Electrocardiogram Report ---
Test Reason : Blood Pressure : */* mmHG Vent. Rate : 77 BPM Atrial Rate : 77 BPM P-R Int : 188 ms QRS Dur : 112 ms QT Int : 382 ms P-R-T Axes : 47 -11 42 degrees QTcB Int : 432 ms Normal sinus rhythm Moderate voltage criteria for LVH, may be normal variant Borderline ECG When compared with ECG of 18-Sep-2018 06:21, No significant change was found Confirmed by Filemon Rodriguez ([id number]) on 07/01/2024 10:37:05 PM Referred By: Confirmed By: Filemon Rodriguez
== END 2024-07-01 18:39 | disposition home or self-care (01) ==
LOC: 2W 20:01 → ED 20:01 → 2W 07-01 01:29